=== PATIENT | male | born 1935 | race Caucasian/White ===

== ENCOUNTER 2018-12-15 10:24 | Observation (INO) | payer OTHER ==
[2018-12-15] MEDS ORDERED: NA CHLORIDE 0.9% 500 ML ONE (10:45)
[2018-12-15 11:08] LABS: Absolute Lymphocytes (CBC) 1.8 K/uL (0.7-4.9); Basophils % 0.7 % (0-1.3); Hematocrit 33.2 % (39.6-49.0); Lymphocytes % 31.9 % (15.3-44.8); MPV 8.4 fL (7.6-11.3); RBC Red Blood Cell Count 3.64 M/uL (4.33-5.43)
[2018-12-15 11:18] LABS: BUN Blood Urea Nitrogen 22 mg/dL (7-18); Bicarbonate 28 mmol/L (21-32); CKMB Creatine Kinase MB 1.5 ng/mL (0.3-3.6); Creatine Phosphokinase 63 U/L (39-308); Glucose Level 96 mg/dL (74-106); Magnesium 1.8 mg/dL (1.8-2.4); Potassium 3.2 mmol/L (3.5-5.1); Sodium Level 134 mmol/L (136-145); Troponin (Emerg Dept Use Only) < 0.02 ng/mL (0.0-0.045)
--- NOTE | 2018-12-15 11:49 | RAD REPORT ---
EXAM DESCRIPTION: CT - CTHCSPWOC - 12/15/2018 10:57 am CLINICAL HISTORY: Syncope, loss of consciousness with fall, head and neck injury COMPARISON: None. TECHNIQUE: Axial 5 mm thick images of the head were obtained. Axial 2 mm thick images of the cervic al spine were obtained with sagittal and coronal reconstruction images generated and reviewed. All CT scans are performed using dose optimization technique as appropriate and may include automated exposure control or mA/KV adjustment according to patient size. FINDINGS: No intracranial hemorrhage, mass, edema or acute intracranial finding. No suspicion for ac [place] infarction. No extra-axial fluid collections. Mastoid air cells are clear. There is opacification of left side sphenoid sinus with the sinus thompson thickened and sclerotic. No globe or orbit abnormal ity seen. No skull fracture. Arterial tree calcifications are present. Patient has moderate atrophy w ith ventricular size in proportion. Prominent chronic ischemic changes are present throughout the cer ebral white matter. Cervical body height and alignment are normal. Anterior endplate spurring at C2-3 and C3-4. Significa nt bony foraminal encroachment seen at C3-4. Central canal detail is inherently limited. No fracture or acute bony abnormality. No paraspinal mass or hematoma. IMPRESSION: Patient has moderate atrophy and advanced chronic ischemic change. No acute intracranial finding. Cervical spine degenerative changes are present as detailed. No acute intracranial finding. Chronic sphenoid sinusitis.
--- NOTE | 2018-12-15 11:51 | RAD REPORT ---
EXAM DESCRIPTION: RAD - Chest Single View - 12/15/2018 11:20 am CLINICAL HISTORY: Fall, chest pain, syncope, right-sided rib pain COMPARISON: August 2018 TECHNIQUE: AP portable chest image was obtained 1103 hours . FINDINGS: Lung volumes are low. Interstitial pattern matches comparison. No pneumothorax or pulmonar y contusion seen. Heart and vasculature are normal. No pleural fluid collection identified. AC joint degenerative changes are present. No gross rib abnormality seen. However, rib detail is limited. No a cute aortic findings suspected. IMPRESSION: Shallow inspiration film without acute cardiopulmonary finding. Rib assessment is limited. Ongoing clinical concerns for chest wall injury or rib injury can be addressed with dedicated rib ser ies or CT chest imaging.
--- NOTE | 2018-12-15 12:22 | RAD REPORT ---
EXAM DESCRIPTION: CT - Chest For Pe Angio - 12/15/2018 12:03 pm CLINICAL HISTORY: Syncope, recent fall, rib pain COMPARISON: Chest Single View dated 12/15/2018 TECHNIQUE: Dynamically enhanced 3 mm thick images of the chest were obtained during administration o f approximately 150mL Isovue 370 IV contrast. Coronal and oblique MIP reconstruction images were gene rated and reviewed. Exam utilizes a protocol to evaluate the pulmonary arterial tree. All CT scans are performed using dose optimization technique as appropriate and may include automated exposure control or mA/KV adjustment according to patient size. FINDINGS: No pulmonary emboli are identified. The aorta as imaged shows no acute or suspicious finding. No pericardial thickening or effusion. Patient has advanced fibro emphysematous lung changes. Numerous moderate-size bullous cavities are pr esent in the upper lung cid. Interstitial stranding in the subpleural interstitial opacification i s probably chronic disease. Superimposed interstitial infiltrates cannot be excluded. Mild bronchial wall thickening is evident and viral infiltrate is possible. Calcified granuloma noted. No suspicious mass of the lung parenchyma and no focal consolidation present. No pleural effusion or pleural thick ening. No mediastinal or hilar suspicious masses. No chest wall masses or abnormal axillary lymphadenopathy. The scapula and shoulder joints bilaterally, partially imaged, show no acute finding. CT PE protocol does not fully image the ribcage. The inferior aspect of the ribs are not imaged. The imaged portions of the ribcage show no displaced fracture. No pathologic rib process. There is questionable fracture of the right sixth rib at the costochondral junction. The third- fifth and seventh ribs show subtle buckling of the cortex anteriorly. This is more pronounced than seen on the left and could be an inco mplete or greenstick type fracture. Correlation is needed with any pain symptoms in this portion of t he ribcage. IMPRESSION: No pulmonary emboli. No acute aortic finding. Extensive fibro emphysematous lung changes with the prominent interstitial pattern in each lung base potentially representing viral infiltrate rather than entirely fibrotic in origin. Patient has a questionable nondisplaced right sixth rib fracture at the costochondral junction. The t hird- fifth and seventh ribs show cortical buckling anteriorly suspicious for greenstick type rib fra ctures. Correlation is needed with any pain symptoms in the mid upper anterior right rib cage. No other significant or suspicious findings.
--- NOTE | 2018-12-15 13:00 | ER ---
Nurse's Notes [facility] Name: Kyaw Ellington Jr Age: 83 yrs Sex: Male : 1935 Arrival Date: 12/15/2018 Time: 10:26 Bed 6 Private MD: Diagnosis: Multiple fractures of ribs, right side;Syncope and collapse Presentation: 12/15 10:27 Presenting complaint: EMS states: pt reports LOC then fell on floor. Hit L side of the ca1 head on drawer and R rib area on floor. BP was stable on scene but when we stood him up pt reported nausea and became diaphoretic, NO change in BP. BGL was 89. Sinus rhythm on 12L. Pt is on Aspirin. Transition of care: patient was not received from another setting of care. Onset of symptoms was December 15, 2018. Risk Assessment: Do you want to hurt yourself or someone else? Patient reports no desire to harm self or others. Initial Sepsis Screen: Does the patient meet any 2 criteria? No. Patient's initial sepsis screen is negative. Does the patient have a suspected source of infection? No. Patient's initial sepsis screen is negative. Care prior to arrival: IV initiated. 20 GA, in the right wrist, Glucose check: 89. 10:27 Method Of Arrival: EMS: [place] [id number] 10:27 Acuity: JAME 2 ca1 10:40 Mechanism of Injury: Fall from standing position. Trauma event details: Injury occurred [facility] in the [facility], Injury occurred: at home. Injury occurred: December 15, 2018 Injury occurred at: 10:00. Trauma Activation: Alert Physician: ED Physician; Name: ; Notified At: ; Arrived At: Physician: General Surgeon; Name: ; Notified At: ; Arrived At: Physician: Radiology; Name: ; Notified At: ; Arrived At: Physician: Respiratory; Name: ; Notified At: ; Arrived At: Physician: Lab; Name: ; Notified At: ; Arrived At: Historical: - Allergies: 10:32 No Known Allergies; ca1 - Home Meds: 10:59 levothyroxine oral [Active]; Lovastatin Oral [Active]; aspirin 81 mg Oral chew 1 tab ca1 once daily [Active]; Hydrochlorothiazide Oral [Active]; Potassium Chloride Oral [Active]; - PMHx: 10:32 COLON CA; COPD; Diabetes - NIDDM; Hyperlipidemia; Hypertension; Hypothyroidism; ca1 PROSTATE CA; - PSHx: 10:32 Colon Surgery; Hernia Repair; ca1 - Immunization history:: Adult Immunizations up to date. - Social history:: Smoking status: Patient/guardian denies using tobacco. - Immunization history: Last tetanus immunization: < 5 years ago. - Ebola Screening: : Patient negative for fever greater than or equal to 101.5 degrees Fahrenheit, and additional compatible Ebola Virus Disease symptoms Patient denies exposure to infectious person Patient denies travel to an Ebola-affected area in the 21 days before illness onset No symptoms or risks identified at this time. - Family history:: not pertinent. - Hospitalizations: : No recent hospitalization is reported. Screenin:34 Abuse screen: Denies threats or abuse. Denies injuries from another. Nutritional ca1 screening: No deficits noted. Tuberculosis screening: No symptoms or risk factors identified. Fall Risk Fall in past 12 months (25 points). IV access (20 points). Total Lu Fall Scale indicates Low Risk Score (25-44 pts). Fall prevention measures have been instituted. Side Rails Up X 2 Family Present and informed to notify staff if they need to leave bedside As available Patient and Family Educated on Fall Prevention Program and strategies. Primary Survey: 10:38 NO uncontrolled hemorrhage observed. A: The patient is alert. Airway: patent. ca1 Breathing/Chest: Respiratory pattern: regular, Respiratory effort: spontaneous, unlabored, Breath sounds: clear, bilaterally. Chest inspection: symmetrical rise and fall of the chest. Circulation: Cardiac rhythm: sinus bradycardia Heart tones present. Pulses: palpable bilateral radial, brachial, femoral, popliteal, posterior tibial and and dorsalis pedis arteries.. Skin color: pink, Skin temperature: warm, dry. Disability Alert. Exposure/Environment: All clothing and personal items were removed. Forensic evidence collection is not deemed to be indicated at this time. Items placed in patient belonging bag. There is no evidence of uncontrolled external bleeding. No obvious injuries are noted at this time. A warming method has been applied: A warm blanket has been provided to the patient. 11:16 Reassessment Airway Airway Patent Breathing/Chest Respiratory pattern Regular ca1 Respiratory effort Spontaneous Unlabored Breath sounds Clear Chest inspection Symmetrical Circulation Heart rhythm Sinus antonette Heart tones Present Pulses Palpable Color [place] Temperature Warm Dry Disability Alert. Assessment: 10:30 Reassessment: Dr. Jack at bedside. ca1 10:34 General: Appears in no apparent distress. comfortable, Behavior is calm, cooperative, ca1 appropriate for age. Pain: Complains of pain in R ribcage area Pain currently is 3 out of 10 on a pain scale. at worst was 8 out of 10 on a pain scale. Aggravated by repositioning. Neuro: Level of Consciousness is awake, alert, obeys commands, Oriented to person, place, time, situation, Appropriate for age. Cardiovascular: Heart tones S1 S2 present Capillary refill < 3 seconds Patient's skin is warm and dry. Pulses are all present. Rhythm is sinus bradycardia. Respiratory: Airway is patent Respiratory effort is even, unlabored, Respiratory pattern is regular, symmetrical, Breath sounds are clear bilaterally. GI: Abdomen is flat, non-distended, Bowel sounds present X 4 quads. Abd is soft and non tender X 4 quads. : No deficits noted. No signs and/or symptoms were reported regarding the genitourinary system. EENT: No deficits noted. No signs and/or symptoms were reported regarding the EENT system. Derm: Skin is healthy with good turgor, Skin is pink, warm \T\ dry. Derm: Musculoskeletal: Circulation, motion, and sensation intact. Capillary refill < 3 seconds, Range of motion: intact in all extremities. Injury Description: Laceration sustained to left temporal area is clean, superficial, 0.5 to 2.5 cm long, was sustained less than 30 minutes ago. no active bleeding noted at this time. 11:17 Reassessment: Patient appears in no apparent distress at this time. Patient and/or ca1 family updated on plan of care and expected duration. Pain level reassessed. Patient is alert, oriented x 3, equal unlabored respirations, skin warm/dry/pink. 12:11 Reassessment: Patient appears in no apparent distress at this time. Patient and/or ca1 family updated on plan of care and expected duration. Pain level reassessed. Patient is alert, oriented x 3, equal unlabored respirations, skin warm/dry/pink. 13:02 Reassessment: Patient appears in no apparent distress at this time. Patient and/or ca1 family updated on plan of care and expected duration. Pain level reassessed. Patient is alert, oriented x 3, equal unlabored respirations, skin warm/dry/pink. Vital Signs: 10:32 BP 133 / 71; Pulse 55; Resp 14 S; Temp 97.5(O); Pulse Ox 97% on R/A; Weight 86.18 kg ca1 (R); Height 5 ft. 11 in. (180.34 cm) (R); Pain 3/10; 11:17 BP 122 / 68; Pulse 68; Resp 17 S; Pulse Ox 100% on R/A; ca1 12:11 BP 127 / 69; Pulse 76; Resp 13 S; Pulse Ox 99% on R/A; ca1 13:02 BP 141 / 80; Pulse 82; Resp 16 S; Pulse Ox 99% on R/A; ca1 10:32 Body Mass Index 26.50 (86.18 kg, 180.34 cm) ca1 [place] Coma Score: 10:38 Eye Response: spontaneous(4). Verbal Response: oriented(5). Motor Response: obeys ca1 commands(6). Total: 15. Trauma Score (Adult): 10:38 Eye Response: spontaneous(1); Verbal Response: oriented(1); Motor Response: obeys ca1 commands(2); Systolic BP: > 89 mm Hg(4); Respiratory Rate: 10 to 29 per min(4); [place]inda Score: 15; Trauma Score: 12 ED Course: 10:26 Patient arrived in ED. ca1 10:27 Patient has correct armband on for positive identification. Bed in low position. Call mh5 light in reach. Side rails up X2. Warm blanket given. compliance monitor on. Pulse ox on. NIBP on. 10:28 EKG done, by medical records tech. reviewed by López Jack MD. at1 10:30 López Jack MD is Attending Physician. rn 10:30 Triage completed. ca1 10:32 Arm band placed on right wrist. EKG completed in triage. Results shown to MD. ca1 10:34 No provider procedures requiring assistance completed. Maintain EMS IV. Dressing ca1 intact. Good blood return noted. Site clean \T\ dry. Gauge \T\ site: 20G. 10:38 Patient maintains SpO2 saturation greater than 95% on room air. ca1 10:42 Venus Ibarra, RN is Primary Nurse. ca1 10:42 Thermoregulation: warm blanket given to patient. ca1 10:58 CT Head C Spine In Process Unspecified. EDMS 11:05 CT completed. Patient tolerated procedure well. Patient moved to radiology via jj2 stretcher. 11:16 Wound care: to laceration located on left temporal area was cleaned with Betadine, ca1 dressed with Steri-strips, Patient tolerated well. 11:20 XRAY Chest (1 view) In Process Unspecified. EDMS 12:03 CT Chest For PE Angio In Process Unspecified. EDMS 12:59 Mali Elias MD is Hospitalizing Provider. rn 13:43 IV discontinued, intact, bleeding controlled, No redness/swelling at site. Pressure ca1 dressing applied. Administered Medications: 10:50 Drug: NS 0.9% 500 ml Route: IV; Rate: bolus; Site: right wrist; ca1 11:56 Follow up: Response: No adverse reaction; IV Status: Completed infusion; IV Intake: ca1 500ml 13:12 Drug: HYDROcodone-acetaminophen 5 mg-325 mg 1 tabs {Note: RASS - 0.} Route: PO; ca1 14:00 Follow up: Response: No adverse reaction; Pain is decreased ca1 Intake: 11:56 IV: 500ml; Total: 500ml. ca1 Output: 13:44 Urine: 320ml (Voided); Total: 320ml. ca1 Outcome: 13:00 Decision to Hospitalize by Provider. rn 13:43 Admitted to Tele accompanied by fatoumata, family with patient, via stretcher, room 421, ca1 with chart, Report called to Pamela Mane RN 13:43 Condition: stable 13:43 Instructed on the need for admit. 13:45 Patient's length of stay in the Emergency Department was greater than 2 hours. ca1 Additional tests done. Patient's length of stay extended due to 13:51 Patient left the ED. ca1 Signatures: Dispatcher [employer] EDMS Dale Suárez j López Jack MD MD rn Gonzales, Amanda, test evaluator EKG Tat1 Dominique Clayton mh5 Venus Ibarra RN RN ca1 Corrections: (The following items were deleted from the chart) 10:30 10:27 Presenting complaint: EMS states: pt reports LOC then fell on floor. Hit L side ca1 of the head on drawer and R rib area on floor. BP was stable on scene but when we stood him up pt reported nausea and became diaphoretic, NO change in BP. BGL was 89. Sinus rhythm on 12L. ca1 10:34 10:27 Presenting complaint: EMS states: pt reports LOC then fell on floor. Hit L side ca1 of the head on drawer and R rib area on floor. BP was stable on scene but when we stood him up pt reported nausea and became diaphoretic, NO change in BP. BGL was 89. Sinus rhythm on 12L. ca1 10:34 10:34 Reassessment: Dr. Jack at bedside ca1 ca1 12:49 12:11 BP 127 / 69; Pulse 76bpm; Resp 13bpm; Pulse Ox 99% RA; ca1 ca1
--- NOTE | 2018-12-15 13:01 | EDPHYS ---
Physician Documentation [facility] Name: Kyaw Ellington Jr Age: 83 yrs Sex: Male : 1935 Arrival Date: 12/15/2018 Time: 10:26 Bed 6 Private MD: ED Physician López Jack HPI: 12/15 10:42 This 83 yrs old Male presents to ER via EMS with complaints of Fall Injury. rn 10:42 Details of fall: The patient fell from an upright position, while standing. Onset: The rn symptoms/episode began/occurred just prior to arrival. Associated injuries: The patient sustained injury to the head. Severity of symptoms: At their worst the symptoms were mild, in the emergency department the symptoms have improved. The patient has not experienced similar symptoms in the past. Reports had just gotten home from coffee with friends, was changing, felt lightheaded and passed out, Woke up on ground, not sure what he hit, no blood thinners. Reports feels ok right now except for rib pain on right side of chest. Denies preceding chest pain/sob/abd pain/nausea/vomiting/diaphoresis. No focal neurological complaint. Does state was on a recent flight to [place] for affair. . Historical: - Allergies: 10:32 No Known Allergies; ca1 - Home Meds: 10:59 levothyroxine oral [Active]; Lovastatin Oral [Active]; aspirin 81 mg Oral chew 1 tab ca1 once daily [Active]; Hydrochlorothiazide Oral [Active]; Potassium Chloride Oral [Active]; - PMHx: 10:32 COLON CA; COPD; Diabetes - NIDDM; Hyperlipidemia; Hypertension; Hypothyroidism; ca1 PROSTATE CA; - PSHx: 10:32 Colon Surgery; Hernia Repair; ca1 - Immunization history:: Adult Immunizations up to date. - Social history:: Smoking status: Patient/guardian denies using tobacco. - Immunization history: Last tetanus immunization: < 5 years ago. - Ebola Screening: : Patient negative for fever greater than or equal to 101.5 degrees Fahrenheit, and additional compatible Ebola Virus Disease symptoms Patient denies exposure to infectious person Patient denies travel to an Ebola-affected area in the 21 days before illness onset No symptoms or risks identified at this time. - Family history:: not pertinent. - Hospitalizations: : No recent hospitalization is reported. ROS: 10:42 Constitutional: Negative for fever, chills, and weight loss, Eyes: Negative for injury, rn pain, redness, and discharge, Neck: + mild neck pain Cardiovascular: + right rib pain, negative for palpitations Respiratory: Negative for shortness of breath, cough, wheezing, and pleuritic chest pain, Abdomen/GI: Negative for abdominal pain, nausea, vomiting, diarrhea, and constipation, Back: Negative for injury and pain, MS/Extremity: Negative for injury and deformity, Skin: + skin tear left pentecostal Neuro: Negative for headache, weakness, numbness, tingling, and seizure. Exam: 10:42 Constitutional: This is a well developed, well nourished patient who is awake, alert, rn and in no acute distress. Head/Face: Normocephalic, + 2cm triangular skin tear left pentecostal, no active bleeding Eyes: Pupils equal round and reactive to light, extra-ocular motions intact. Lids and lashes normal. Conjunctiva and sclera are non-icteric and not injected. Cornea within normal limits. Periorbital areas with no swelling, redness, or edema. ENT: No oral trauma. Neck: Trachea midline, no masses, + mild pericervical tenderness without bony tenderness Chest/axilla: Normal chest wall appearance and motion. + mild tenderness right lateral chest wall, no crepitus, no bruising. Cardiovascular: Bradycardic, regular, no murmur Respiratory: No increased work of breathing, no retractions or nasal flaring. Abdomen/GI: Soft, non-tender MS/ Extremity: Pulses equal, no cyanosis. Neurovascular intact. Full, normal range of motion. Equal circumference. Neuro: Awake and alert, GCS 15, oriented to person, place, time, and situation. Cranial nerves II-XII grossly intact. Motor strength 5/5 in all extremities. Sensory grossly intact. Cerebellar exam normal. Vital Signs: 10:32 BP 133 / 71; Pulse 55; Resp 14 S; Temp 97.5(O); Pulse Ox 97% on R/A; Weight 86.18 kg ca1 (R); Height 5 ft. 11 in. (180.34 cm) (R); Pain 3/10; 11:17 BP 122 / 68; Pulse 68; Resp 17 S; Pulse Ox 100% on R/A; ca1 12:11 BP 127 / 69; Pulse 76; Resp 13 S; Pulse Ox 99% on R/A; ca1 13:02 BP 141 / 80; Pulse 82; Resp 16 S; Pulse Ox 99% on R/A; ca1 10:32 Body Mass Index 26.50 (86.18 kg, 180.34 cm) ca1 Olinda Coma Score: 10:38 Eye Response: spontaneous(4). Verbal Response: oriented(5). Motor Response: obeys ca1 commands(6). Total: 15. Trauma Score (Adult): 10:38 Eye Response: spontaneous(1); Verbal Response: oriented(1); Motor Response: obeys ca1 commands(2); Systolic BP: > 89 mm Hg(4); Respiratory Rate: 10 to 29 per min(4); Seco Score: 15; Trauma Score: 12 MDM: 10:30 Patient medically screened. rn 12:58 Differential diagnosis: closed head injury, contusion, fracture, sprain, strain. Data rn reviewed: vital signs, nurses notes, lab test result(s), EKG, radiologic studies, CT scan, plain films, and as a result, I will admit patient. Counseling: I had a detailed discussion with the patient and/or guardian regarding: the historical points, exam findings, and any diagnostic results supporting the discharge/admit diagnosis, lab results, radiology results, the need for further work-up and treatment in the hospital. Response to treatment: the patient's symptoms have mildly improved after treatment, and as a result, I will admit patient. Admission orders: after a detailed discussion of the patient's condition and case, the admit orders are written by me. ED course: Pt with unclear etiology of syncope, feeling better, normal vitals. CT chest shows 5 non-displaced/greenstick rib fractures. Will observe overnight given age, multiple co-morbidities, and 5 rib fractures. Admitted to Dr. Elias at 1300.. 12/15 10:41 Order name: Basic Metabolic Panel; Complete Time: : rn 12/15 10:41 Order name: CBC with Diff; Complete Time: : rn 12/15 10:41 Order name: Ckmb; Complete Time: : rn 12/15 10:41 Order name: CPK; Complete Time: rn 12/15 10:41 Order name: Magnesium; Complete Time: : rn 12/15 10:41 Order name: Troponin (emerg Dept Use Only); Complete Time: 11:22 rn 12/15 10:41 Order name: CT Head C Spine; Complete Time: 12:03 rn 12/15 10:41 Order name: EKG; Complete Time: 10:42 rn 12/15 10:41 Order name: XRAY Chest (1 view); Complete Time: 12:03 rn 12/15 10:53 Order name: NOVA ca1 12/15 11:23 Order name: CT Chest For PE Angio; Complete Time: 12:29 rn 12/15 12:44 Order name: Urine Dipstick--Ancillary (enter results); Complete Time: 13:06 bd 12/15 10:41 Order name: Cardiac monitoring; Complete Time: 10:42 rn 12/15 10:41 Order name: EKG - Nurse/Tech; Complete Time: 10:42 rn 12/15 10:41 Order name: IV Saline Lock; Complete Time: 10:42 rn 12/15 10:41 Order name: Labs collected and sent; Complete Time: 10:42 rn 12/15 10:41 Order name: NPO; Complete Time: 10:42 rn 12/15 10:41 Order name: O2 Per Protocol; Complete Time: 10:43 rn 12/15 10:41 Order name: O2 Sat Monitoring; Complete Time: 10:43 rn 12/15 10:41 Order name: Urine Dipstick-Ancillary (obtain specimen); Complete Time: 12:43 rn Administered Medications: 10:50 Drug: NS 0.9% 500 ml Route: IV; Rate: bolus; Site: right wrist; ca1 11:56 Follow up: Response: No adverse reaction; IV Status: Completed infusion; IV Intake: ca1 500ml 13:12 Drug: HYDROcodone-acetaminophen 5 mg-325 mg 1 tabs {Note: RASS - 0.} Route: PO; ca1 14:00 Follow up: Response: No adverse reaction; Pain is decreased ca1 Disposition: 12/15/18 13:00 Hospitalization ordered by Mali Elias for Observation. Preliminary diagnosis are Multiple fractures of ribs, right side, Syncope and collapse. - Bed requested for Telemetry/MedSurg (observation). - Status is Observation. ca1 - Condition is Stable. - Problem is new. - Symptoms have improved. UTI on Admission? No Signatures: Dispatcher [employer] EDMS Ofelia Shabazz bd López Jack MD MD rn AcobVenus RN RN ca1 Corrections: (The following items were deleted from the chart) 13: 13:00 Hospitalization Ordered by Mali Elias MD for Observation. Preliminary bd diagnosis is Multiple fractures of ribs, right side; Syncope and collapse. Bed requested for Telemetry/MedSurg (observation). Status is Observation. Condition is Stable. Problem is new. Symptoms have improved. UTI on Admission? No. rn 13:51 13:31 12/15/2018 13:00 Hospitalization Ordered by Mali Elias MD for Observation. ca1 Preliminary diagnosis is Multiple fractures of ribs, right side; Syncope and collapse. Bed requested for Telemetry/MedSurg (observation). Status is Observation. Condition is Stable. Problem is new. Symptoms have improved. UTI on Admission? No. bd
[2018-12-15 13:03] LABS: Urine Blood TRACE (NEG); Urine Glucose NEGATIVE (NEG); Urine Protein NEGATIVE (NEG); Urine Specific Gravity 1.015 (1.005-1.030)
[2018-12-15] MEDS ORDERED: HYDROCODONE/APAP 5/325 MG TAB ONE (13:06)
--- NOTE | 2018-12-15 14:43 | P.HP ---
Certification for Inpatient Patient admitted to: Observation With expected LOS: <2 Midnights Patient will require the following post-hospital care: None Practitioner: I am a practitioner with admitting privileges, knowledge of patient current condition, hospital course, and medical plan of care. Services: Services provided to patient in accordance with Admission requirements found in Title 42 Section 412.3 of the Code of Federal Regulations Patient History Date of Service: 12/15/18 Primary Care Provider: In [place] Reason for admission: Syncopal Episode History of Present Illness: This is a 83-year-old male with significant past medical history of hypertension and diabetes who presented to the ED after having a syncopal episode at the house. Patient stated that he woke up this morning and had his usual coffee after which he went to his room and to change his pants after he was able to change his pants and was trying to get into bed and had a syncopal episode. He stated that he felt like he was getting dizzy and fell to the ground after that. His heard him fall and thus came to the room. Patient woke up did not have any amnesia and was recollecting the entire incident to his afterwards. Patient's at bedside states that patient was down for at least a min or 2 however she is not sure. Patient stated that he has never had this episode happened to him before. No other complaints to offer at this time. Denies having any headache, vision changes in the LEs or any other associated symptoms. Patient stated that he recently flew back from [place] and has been on a fast pace life recently than usual self. Allergies No Known Allergies Allergy (Verified 09/23/15 12:37) Home medications list reviewed: Yes Home Medications: Aspirin [Raji Chewable Aspirin] 81 mg PO DAILY 09/23/15 Metformin ER [Glucophage ER*] 500 mg PO DAILY 09/23/15 - Past Medical/Surgical History Has patient received pneumonia vaccine in the past: Yes Diabetic: Yes -: Hypertension -: Diabetes -: Prostate cancer -: Hernia repair - Family History Family History: Reviewed- Non-Contributory - Social History Smoking Status: Former smoker Counseled patient to stop smoking for: more than 10 minutes Smoking therapy provided: Yes Patient receptive to therapy: Yes Alcohol use: No CD- Drugs: No Caffeine use: No Place of Residence: Home Review of Systems 10-point ROS is otherwise unremarkable Physical Examination - Vital Signs Temperature: 97.5 F Blood Pressure: 141/80 Pulse: 82 Respirations: 16 - Physical Exam General: Alert, In no apparent distress HEENT: Atraumatic, PERRLA, Mucous membr. moist/pink, EOMI, Sclerae nonicteric Neck: Supple, 2+ carotid pulse no bruit, No LAD, Without JVD or thyroid abnormality Respiratory: Clear to auscultation bilaterally, Normal air movement Cardiovascular: Regular rate/rhythm, Normal S1 S2 Gastrointestinal: Normal bowel sounds, No tenderness Musculoskeletal: No tenderness Integumentary: No rashes Neurological: Normal gait, Normal speech, Normal strength at 5/5 x4 extr, Normal tone, Normal affect Lymphatics: No axilla or inguinal lymphadenopathy - Studies Laboratory Data (last 24 hrs) 12/15/18 10:45: WBC 5.7, Hgb 11.3 L, Hct 33.2 L, Plt Count 187 12/15/18 10:45: Sodium 134 L, Potassium 3.2 L, BUN 22 H, Creatinine 1.21, Glucose 96, Magnesium 1.8 Assessment and Plan - Problems (Diagnosis) (1) Syncope Current Visit: Yes Status: Acute Plan: Syncopal episode most likely secondary to vasovagal symptom -will get echocardiogram and carotid Doppler at this time to rule out any acute abnormality -PTOT has been consulted -fall precautions given Qualifiers: Syncope type: vasovagal syncope Qualified Code(s): R55 - Syncope and collapse (2) Rib fracture Current Visit: Yes Status: Acute Plan: Acute rib fracture on most likely secondary to fall -incentive spirometer and pain management at this time -will monitor patient closely while here in the hospital Qualifiers: Encounter type: initial encounter Rib fracture type: multiple ribs Fracture type: closed Laterality: right Qualified Code(s): S22.41XA - Multiple fractures of ribs, right side, initial encounter for closed fracture (3) Hypertension Current Visit: Yes Status: Chronic Plan: Will restart patient on home medication at this time Qualifiers: Hypertension type: essential hypertension Qualified Code(s): I10 - Essential (primary) hypertension (4) Diabetes Current Visit: Yes Status: Chronic Plan: Will start patient on insulin sliding scale Qualifiers: Diabetes mellitus type: type 2 Diabetes mellitus mcfp insulin use: without pediatric oncologist use Diabetes mellitus complication status: without complication Qualified Code(s): E11.9 - Type 2 diabetes mellitus without complications Discharge Plan: Home Plan to discharge in: 48 Hours - Advance Directives Does patient have a Living Will: No Does patient have a Durable POA for Healthcare: No - Code Status/Comfort Care Code Status Assessed: Yes Critical Care: No
[2018-12-15] MEDS ORDERED: D50W 25 GM/50 ML SYRINGE/VIAL IV PRN (14:44)
[2018-12-15] MEDS ORDERED: GLUCAGON 1 MG/VIAL IM PRN (14:44)
[2018-12-15 14:49] VITALS: BMI 26.4
--- NOTE | 2018-12-15 15:14 | EKG ---
Test Date: 2018-12-15 Test Time: 10:25:27 Financial Agent: HERLINDA MEASUREMENT RESULTS: Intervals: Rate: 54 LA: 150 QRSD: 82 QT: 462 QTc: 438 [place]: P: 36 LA: 150 QRS: 20 T: 28 INTERPRETIVE STATEMENTS: Sinus bradycardia Otherwise normal ECG Compared to ECG 01/26/2017 08:59:40 Sinus rhythm no longer present ST (T wave) deviation no longer present Electronically Signed On 12-15-18 15:13:49 CDT by Beau Cortes
[2018-12-15] MEDS: INSULIN -REGULAR HUMAN 50 UNIT/0.5 ML ML SQ SCH ×2 (16:30→21:00)
[2018-12-15] MEDS ORDERED: POTASSIUM 25 MEQ EFFERV TAB PO ONE (18:58)
--- NOTE | 2018-12-15 20:32 | RAD REPORT ---
EXAM DESCRIPTION: - CP - 12/15/2018 7:42 pm CLINICAL HISTORY: Syncope COMPARISON: None. TECHNIQUE: Real-time sonographic evaluation of both carotid systems was performed. Gonzalez scale and Do ppler interrogation were performed with waveform tracing bilaterally. FINDINGS: Normal high resistance waveforms are noted in both external carotid arteries. The common c arotid arteries and internal carotid arteries show normal low resistance waveforms. Calcified and noncalcified plaquing changes are seen in each carotid bulb and into each internal wilson tid artery. Visually no significant luminal narrowing seen. No dissection identified. Peak systolic a nd end diastolic velocity values and the ICA/CCA ratios are in the non-hemodynamically significant ra nge. Antegrade flow seen in both vertebral arteries. Velocity values and ratios were recorded and are retained in the patient's imaging records. IMPRESSION: Bilateral calcified and noncalcified plaquing changes are present. No evidence of a hemodynamically significant stenosis.
[2018-12-15] MEDS ORDERED: MORPHINE 4 MG/ML SYR IV PRN (22:00)
[2018-12-15] MEDS ORDERED: MORPHINE 4 MG/ML SYR ONE (23:05)
[2018-12-16 03:05] LABS: Urine Appearance CLEAR; Urine Bilirubin NEGATIVE (NEG); Urine Blood NEGATIVE (NEG); Urine Color YELLOW; Urine Glucose NEGATIVE (NEG); Urine Protein NEGATIVE (NEG); Urine Specific Gravity 1.015 (1.005-1.030); Urine Urobilinogen 0.2 mg/dL (0.2-1.0); Urine pH 7.5 (5.0-7.0)
[2018-12-16 03:08] LABS: Urine Microscopic Reflex NO UMIC
[2018-12-16 03:21] VITALS: O2SAT 98
[2018-12-16 05:54] LABS: Absolute Lymphocytes (CBC) 1.9 K/uL (0.7-4.9); Basophils % 0.3 % (0-1.3); Hematocrit 32.9 % (39.6-49.0); Lymphocytes % 29.5 % (15.3-44.8); RBC Red Blood Cell Count 3.65 M/uL (4.33-5.43)
[2018-12-16 06:09] LABS: Albumin 3.3 g/dL (3.4-5.0); Bilirubin Total 0.4 mg/dL (0.2-1.0); Potassium 3.6 mmol/L (3.5-5.1); Protein, Total 6.9 g/dL (6.4-8.2)
[2018-12-16] MEDS: INSULIN -REGULAR HUMAN 50 UNIT/0.5 ML ML SQ SCH (07:30)
[2018-12-16] MEDS ORDERED: ONDANSETRON 4 MG/2 ML VIAL IV ONE (08:07)
[2018-12-16] MEDS ORDERED: POTASSIUM CL SA 10 MEQ TAB PO ONE (08:22)
[2018-12-16] MEDS ORDERED: POTASSIUM 25 MEQ EFFERV TAB PO ONE (09:00)
[2018-12-16] MEDS ORDERED: ENOXAPARIN 40 MG/0.4 ML SQ SCH (09:00)
--- NOTE | 2018-12-16 11:53 | P.SSS ---
Patient History Date of Service: 12/16/18 Primary Care Provider: In [place] Reason for admission: Syncopal Episode History of Present Illness: This is a 83-year-old male with significant past medical history of hypertension and diabetes who presented to the ED after having a syncopal episode at the house. Patient stated that he woke up this morning and had his usual coffee after which he went to his room and to change his pants after he was able to change his pants and was trying to get into bed and had a syncopal episode. He stated that he felt like he was getting dizzy and fell to the ground after that. His heard him fall and thus came to the room. Patient woke up did not have any amnesia and was recollecting the entire incident to his afterwards. Patient's at bedside states that patient was down for at least a min or 2 however she is not sure. Patient stated that he has never had this episode happened to him before. No other complaints to offer at this time. Denies having any headache, vision changes in the LEs or any other associated symptoms. Patient stated that he recently flew back from [place] and has been on a fast pace life recently than usual self. Allergies No Known Allergies Allergy (Verified 09/23/15 12:37) Home Medications: Aspirin [Raji Chewable Aspirin] 81 mg PO DAILY 09/23/15 Metformin ER [Glucophage ER*] 500 mg PO DAILY 09/23/15 Levothyroxine [Synthroid*] 1 tab PO DAILY 12/15/18 Lovastatin 12/15/18 Potassium Chloride 12/15/18 hydroCHLOROthiazide [Hydrochlorothiazide*] 12/15/18 - Past Medical/Surgical History Has patient received pneumonia vaccine in the past: Yes Diabetic: Yes -: Hypertension -: Diabetes -: Prostate cancer -: hypothyroidism -: copd -: hyperlipidemia -: prostate cx -: Hernia repair -: colon sx - Family History Family History: Reviewed- Non-Contributory - Social History Smoking Status: Former smoker Alcohol use: No CD- Drugs: No Caffeine use: No Place of Residence: Home Review of Systems 10-point ROS is otherwise unremarkable Physical Examination - Vital Signs Temperature: 97.3 F Blood Pressure: 144/69 Pulse: 72 Respirations: 18 Pulse Ox (%): 97 - Physical Exam General: Alert, In no apparent distress HEENT: Atraumatic, PERRLA, Mucous membr. moist/pink, EOMI, Sclerae nonicteric Neck: Supple, 2+ carotid pulse no bruit, No LAD, Without JVD or thyroid abnormality Respiratory: Clear to auscultation bilaterally, Normal air movement Cardiovascular: Regular rate/rhythm, Normal S1 S2 Gastrointestinal: Normal bowel sounds, No tenderness Musculoskeletal: No tenderness Integumentary: No rashes Neurological: Normal gait, Normal speech, Normal strength at 5/5 x4 extr, Normal tone, Normal affect Lymphatics: No axilla or inguinal lymphadenopathy - Diagnosis (Problem(s)) (1) Syncope Current Visit: Yes Status: Acute Plan: Syncopal episode most likely secondary to vasovagal symptom -echocardiogram and carotid Doppler negative for any acute abnormality -patient worked with physical therapy did well overall -this syncopal episode resolves while here in the hospital. -discharge patient home today Qualifiers: Syncope type: vasovagal syncope Qualified Code(s): R55 - Syncope and collapse (2) Rib fracture Current Visit: Yes Status: Acute Plan: Acute rib fracture on most likely secondary to fall -incentive spirometer and pain management at this time -will prescribed over the counter Tylenol for pain management at home Qualifiers: Encounter type: initial encounter Rib fracture type: multiple ribs Fracture type: closed Laterality: right Qualified Code(s): S22.41XA - Multiple fractures of ribs, right side, initial encounter for closed fracture (3) Hypertension Current Visit: Yes Status: Chronic Qualifiers: Hypertension type: essential hypertension Qualified Code(s): I10 - Essential (primary) hypertension (4) Diabetes Current Visit: Yes Status: Chronic Qualifiers: Diabetes mellitus type: type 2 Diabetes mellitus terminal carman insulin use: without terminal carman use Diabetes mellitus complication status: without complication Qualified Code(s): E11.9 - Type 2 diabetes mellitus without complications - Disposition Disposition: ROUTINE DISCHARGE Condition: GOOD Diet: Regular Activity: Ad betina
[2018-12-16 12:02] VITALS: BP 120/62; TEMP 97
--- NOTE | 2018-12-16 12:56 | ECHO ---
HEIGHT: 5 ft 11 in WEIGHT: 189 lb 3.2 oz DATE OF STUDY: 12/16/[address]: Mali Elias MD 2-DIMENSIONAL: YES M.MODE: YES DOPPLER: YES COLOR FLOW: YES TDS: NO PORTABLE: NO DEFINITY: NO BUBBLE STUDY: NO DIAGNOSIS: SYNCOPAL EPISODE CARDIAC HISTORY: CATHERIZATION: SURGERY: PROSTHETIC VALVE: PACEMAKER: MEASUREMENTS (cm) DIASTOLIC (NORMALS) SYSTOLIC (NORMALS) IVSd 1.0 (0.6-1.2) LA Diam 3.7 (1.9-4.0) LVEF 73% LVIDd 3.7 (3.5-5.7) LVIDs 2.2 (2.0-3.5) %FS 41% LVPWd 1.1 (0.6-1.2) Ao Diam 3.2 (2.0-3.7) 2 DIMENSIONAL ASSESSMENT: RIGHT ATRIUM: NORMAL LEFT ATRIUM: NORMAL RIGHT VENTRICLE: NORMAL LEFT VENTRICLE: NORMAL TRICUSPID VALVE: NORMAL MITRAL VALVE: MITRAL ANNULAR CALCIFICATION PULMONIC VALVE: NORMAL AORTIC VALVE: NORMAL PERICARDIAL EFFUSION: NONE AORTIC ROOT: NORMAL LEFT VENTRICULAR WALL MOTION: NORMAL DOPPLER/COLOR FLOW: NORMAL COMMENTS: MITRAL ANNULAR CALCIFICATION. NO AORTIC STENOSIS. NORMAL LEFT VENTRICULAR SIZE AND FUNCTION. NO WALL MOTION ABNORMALITY. NO EFFUSION. TECHNOLOGIST: Aby BROWN
== END 2018-12-16 13:14 | disposition home or self-care (01) ==
LOC: ER 10:24 → ERHOLD 13:09 → 4TH 13:45
PROVIDERS: ADMIT Family Medicine; ATTEND Family Medicine
DX: R55 Syncope and collapse (principal); S22.41XA Multiple fractures of ribs, right side, initial encounter for closed fracture; J44.9 Chronic obstructive pulmonary disease, unspecified; I10 Essential (primary) hypertension; E11.8 Type 2 diabetes mellitus with unspecified complications; E03.9 Hypothyroidism, unspecified; E78.5 Hyperlipidemia, unspecified; Z87.891 Personal history of nicotine dependence; Z85.46 Personal history of malignant neoplasm of prostate
CPT/HCPCS: 93005; 93306; 85025 ×2; 80048; 36415; 83735; 82550; 84132; 82962 ×3; 82947 ×2; 81003 ×2; 84484; 82553; 80053; 70450; 72125; 71275; 71045; 93880; 97112; 97116; 97161; 96360; 99285; Q9967; J1650; J7040; J2405; G0378 ×3

== ENCOUNTER 2020-05-16 09:54 | Emergency (ER) | payer OTHER ==
[2020-05-16] MEDS ORDERED: dexAMETHasone 10 MG/ML VIAL ONE (10:23)
[2020-05-16] MEDS ORDERED: FENTANYL CITR 100 MCG/2 ML ONE (10:23)
[2020-05-16] MEDS ORDERED: NA CHLORIDE 0.9% 100 ML ONE (10:24)
[2020-05-16] MEDS ORDERED: METHOCARBAMOL 1,000 MG/10 ML VIAL IV ONE (10:24)
[2020-05-16] MEDS ORDERED: KETOROLAC 30 MG/ML INJ ONE (10:24)
[2020-05-16 10:39] LABS: Absolute Lymphocytes (CBC) 1.6 K/uL (0.7-4.9); Basophils % 0.2 % (0-1.3); Hematocrit 33.6 % (39.6-49.0); Lymphocytes % 18.2 % (15.3-44.8); RBC Red Blood Cell Count 3.74 M/uL (4.33-5.43)
[2020-05-16 10:57] LABS: Potassium 3.4 mmol/L (3.5-5.1)
--- NOTE | 2020-05-16 11:56 | ER ---
Nurse's Notes [facility] Name: Kyaw Ellington Jr Age: 84 yrs Sex: Male : 1935 Arrival Date: 05/16/2020 Time: 09:59 Bed 3 Private MD: Diagnosis: Low back pain Presentation: 05/16 10:00 Chief complaint: EMS states: Low back pain after lifting yesterday. Coronavirus hb screen: At this time, the client does not indicate any symptoms associated with coronavirus-19. Ebola Screen: No symptoms or risks identified at this time. Initial Sepsis Screen: Does the patient meet any 2 criteria? No. Patient's initial sepsis screen is negative. Does the patient have a suspected source of infection? No. Patient's initial sepsis screen is negative. Risk Assessment: Do you want to hurt yourself or someone else? Patient reports no desire to harm self or others. Onset of symptoms was May 15, 2020. 10:00 Method Of Arrival: EMS: [facility] 10:00 Acuity: JAME 3 hb Historical: - Allergies: 10:02 No Known Allergies; hb - Home Meds: 10:02 aspirin 81 mg Oral chew 1 tab once daily [Active]; cetirizine 10 mg Oral tab 1 tab once hb daily [Active]; dorzolamide-timolol (PF) ophthalmic 2 times per day [Active]; etodolac 200 mg Oral cap daily [Active]; hydrochlorothiazide 25 mg Oral tab 1 tab once daily [Active]; levothyroxine 75 mcg tab 1 tab once daily [Active]; lovastatin 40 mg Oral tab 2 times per day [Active]; metformin 500 mg Oral tr24 once daily [Active]; omeprazole 20 mg Oral cpDR 1 cap once daily [Active]; Striverdi Respimat 2.5 mcg/actuation inhalation mist 2 puffs once daily [Active]; timolol maleate 0.5 % Opht solg 1 drop once daily [Active]; Spiriva Respimat inhalation [Active]; - PMHx: 10:02 COLON CA; COPD; Diabetes - NIDDM; Hyperlipidemia; Hypertension; Hypothyroidism; hb PROSTATE CA; - PSHx: 10:02 Colon Surgery; Hernia repair; hb - Immunization history:: Adult Immunizations up to date. - Social history:: Smoking status: Patient denies any tobacco usage or history of. Screenin:44 Abuse screen: Denies threats or abuse. Denies injuries from another. Nutritional hb screening: No deficits noted. Tuberculosis screening: No symptoms or risk factors identified. Fall Risk None identified. Assessment: 10:15 General: Appears in no apparent distress. Behavior is calm, cooperative. Pain: Pain hb currently is 8 out of 10 on a pain scale. at worst was 10 out of 10 on a pain scale. Neuro: Level of Consciousness is awake, alert, obeys commands, Oriented to person, place, time, situation. 10:15 Cardiovascular: Patient's skin is warm and dry. Rhythm is regular. Respiratory: hb Respiratory effort is even, unlabored, Respiratory pattern is regular, symmetrical. GI: No signs and/or symptoms were reported involving the gastrointestinal system. : No signs and/or symptoms were reported regarding the genitourinary system. EENT: No signs and/or symptoms were reported regarding the EENT system. Derm: Skin is pink, warm \T\ dry. Musculoskeletal: Reports low back pain, worse on right. 11:00 Reassessment: Patient appears in no apparent distress at this time. Patient and/or hb family updated on plan of care and expected duration. Pain level reassessed. Patient is alert, oriented x 3, equal unlabored respirations, skin warm/dry/pink. 12:00 Reassessment: Patient appears in no apparent distress at this time. Patient states hb feeling better. Patient states symptoms have improved. Vital Signs: 10:00 BP 154 / 88; Pulse 62; Resp 16; Temp 97.8; Pulse Ox 98% on R/A; Pain 8/10; hb 10:43 BP 119 / 76; Pulse 80; Resp 16; Pulse Ox 97% on R/A; hb 11:45 BP 126 / 76; Pulse 79; Resp 15; Pulse Ox 99% on R/A; Pain 4/10; hb ED Course: 09:59 Patient arrived in ED. hb 10:00 Charles Guillen PA is PHCP. jr8 10:00 López Jack MD is Attending Physician. jr8 10:01 Triage completed. hb 10:03 Arm band placed on. hb 10:15 Ivette Song, RN is Primary Nurse. hb 10:24 Initial lab(s) drawn, by me, sent to lab. Maintain EMS IV. Dressing intact. Good blood sr5 return noted. Site clean \T\ dry. Gauge \T\ site: 20 G. labs collected from existing site, wasted 10 mL blood prior to lab specimen collection, flushed easily with 10 mL NS. 10:44 Patient has correct armband on for positive identification. Bed in low position. Call hb light in reach. Side rails up X 1. 11:21 Basic Metabolic Panel Sent. sv 11:22 CBC with Diff Sent. sv 12:13 No provider procedures requiring assistance completed. IV discontinued, intact, hb bleeding controlled, No redness/swelling at site. Administered Medications: 10:20 Drug: Decadron - Dexamethasone 10 mg Route: IVP; Site: right antecubital; hb 10:55 Follow up: Response: No adverse reaction hb 10:20 Drug: TORadol - Ketorolac 15 mg Route: IVP; Site: right antecubital; hb 10:55 Follow up: Response: No adverse reaction hb 10:20 Drug: fentaNYL (PF) 50 mcg Route: IVP; Site: right antecubital; hb 10:54 Follow up: Response: No adverse reaction hb 10:21 Drug: Robaxin 1 grams Route: IVPB; Infused Over: 1 hrs; Site: right antecubital; hb 11:55 Drug: Potassium Chloride 40 mEq Route: PO; hb 12:12 Follow up: Response: Medication administered at discharge. hb Outcome: 11:55 Discharge ordered by MD. novak 12:13 Discharged to home via wheelchair. hb 12:13 Condition: stable 12:13 Discharge instructions given to patient, Instructed on discharge instructions, follow up and referral plans. medication usage, Demonstrated understanding of instructions, follow-up care, medications, Prescriptions given X 2. 12:14 Patient left the ED. hb Addendum: 05/17/2020 12:54 Addendum: Other bag with pts prescriptions sent to security. 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 Signatures: Ofelia Shabazz Stephanie RN RN Charles Kruse PA PA jr8 Ivette Song RN RN Carol, Tac[place] RN RN sr5
--- NOTE | 2020-05-16 11:56 | EDPHYS ---
Physician Documentation [facility] Name: Kyaw Ellington Jr Age: 84 yrs Sex: Male : 1935 Arrival Date: 05/16/2020 Time: 09:59 Bed 3 Private MD: ED Physician López Jack HPI: 05/16 10:44 This 84 yrs old Male presents to ER via EMS with complaints of Back Pain. jr8 10:44 The patient presents with pain that is acute. The symptoms are located in the low back. jr8 Onset: The symptoms/episode began/occurred acutely, yesterday. The pain does not radiate. Associated signs and symptoms: The patient has no apparent associated signs or symptoms. The problem was sustained when lifting . Modifying factors: The patient symptoms are alleviated by nothing, the patient symptoms are aggravated by any movement. Severity of symptoms: At their worst the symptoms were moderate, in the emergency department the symptoms are unchanged. The patient has experienced a previous episode. The patient has not recently seen a physician. Patient stated that he has history of low back pain with surgery from back in the 70s. Stated that he was lifting his and felt a pull in low back. Since then has had pain that will not decrease. Historical: - Allergies: 10:02 No Known Allergies; hb - Home Meds: 10:02 aspirin 81 mg Oral chew 1 tab once daily [Active]; cetirizine 10 mg Oral tab 1 tab once hb daily [Active]; dorzolamide-timolol (PF) ophthalmic 2 times per day [Active]; etodolac 200 mg Oral cap daily [Active]; hydrochlorothiazide 25 mg Oral tab 1 tab once daily [Active]; levothyroxine 75 mcg tab 1 tab once daily [Active]; lovastatin 40 mg Oral tab 2 times per day [Active]; metformin 500 mg Oral tr24 once daily [Active]; omeprazole 20 mg Oral cpDR 1 cap once daily [Active]; Striverdi Respimat 2.5 mcg/actuation inhalation mist 2 puffs once daily [Active]; timolol maleate 0.5 % Opht solg 1 drop once daily [Active]; Spiriva Respimat inhalation [Active]; - PMHx: 10:02 COLON CA; COPD; Diabetes - NIDDM; Hyperlipidemia; Hypertension; Hypothyroidism; hb PROSTATE CA; - PSHx: 10:02 Colon Surgery; Hernia repair; hb - Immunization history:: Adult Immunizations up to date. - Social history:: Smoking status: Patient denies any tobacco usage or history of. ROS: 10:44 Eyes: Negative for injury, pain, redness, and discharge, ENT: Negative for injury, jr8 pain, and discharge, Neck: Negative for injury, pain, and swelling, Cardiovascular: Negative for chest pain, palpitations, and edema, Respiratory: Negative for shortness of breath, cough, wheezing, and pleuritic chest pain, Abdomen/GI: Negative for abdominal pain, nausea, vomiting, diarrhea, and constipation, MS/Extremity: Negative for injury and deformity, Skin: Negative for injury, rash, and discoloration, Neuro: Negative for headache, weakness, numbness, tingling, and seizure. 10:44 Back: Positive for pain at rest, pain with movement, Negative for radiated pain. Exam: 10:44 Cardiovascular: Regular rate and rhythm with a normal S1 and S2. No gallops, murmurs, jr8 or rubs. Normal PMI, no JVD. No pulse deficits. Respiratory: Lungs have equal breath sounds bilaterally, clear to auscultation and percussion. No rales, rhonchi or wheezes noted. No increased work of breathing, no retractions or nasal flaring. Abdomen/GI: Soft, non-tender, with normal bowel sounds. No distension or tympany. No guarding or rebound. No evidence of tenderness throughout. Skin: Warm, dry with normal turgor. Normal color with no rashes, no lesions, and no evidence of cellulitis. MS/ Extremity: Pulses equal, no cyanosis. Neurovascular intact. Full, normal range of motion. Neuro: Awake and alert, GCS 15, oriented to person, place, time, and situation. Cranial nerves II-XII grossly intact. Motor strength 5/5 in all extremities. Sensory grossly intact. 10:44 Constitutional: The patient appears alert, awake, uncomfortable. 10:44 Back: pain, that is moderate, ROM is painful, with all movement, normal spinal alignment noted, CVA tenderness, is absent, vertebral tenderness, is not appreciated, Straight leg raises: right lower extremity illicits pain, at 15 degrees. Vital Signs: 10:00 BP 154 / 88; Pulse 62; Resp 16; Temp 97.8; Pulse Ox 98% on R/A; Pain 8/10; hb 10:43 BP 119 / 76; Pulse 80; Resp 16; Pulse Ox 97% on R/A; hb 11:45 BP 126 / 76; Pulse 79; Resp 15; Pulse Ox 99% on R/A; Pain 4/10; hb MDM: 10:01 Patient medically screened. jr8 11:54 Data reviewed: vital signs, nurses notes, lab test result(s). Data interpreted: Pulse jr8 oximetry: on room air is 97 %. Interpretation: normal. Counseling: I had a detailed discussion with the patient and/or guardian regarding: the historical points, exam findings, and any diagnostic results supporting the discharge/admit diagnosis, lab results, the need for outpatient follow up, a family practitioner, to return to the emergency department if symptoms worsen or persist or if there are any questions or concerns that arise at home. Response to treatment: the patient's symptoms have markedly improved after treatment. ED course: Patient with little to no pain at this time. Able to maneuver more readily without pain. Will d/c home with medication to help with sprain of low back. Knows to f/u with PCP and to not do any heavy lifting. Patient good with plan overall and will be sent home . 05/16 10:03 Order name: CBC with Diff [facility] 05/16 10:03 Order name: Basic Metabolic Panel [facility] 05/16 10:04 Order name: CBC with Automated Diff; Complete Time: 10:43 EDMS 05/16 10:04 Order name: Basic Metabolic Panel; Complete Time: 11:01 EDMS Administered Medications: 10:20 Drug: Decadron - Dexamethasone 10 mg Route: IVP; Site: right antecubital; hb 10:55 Follow up: Response: No adverse reaction hb 10:20 Drug: TORadol - Ketorolac 15 mg Route: IVP; Site: right antecubital; hb 10:55 Follow up: Response: No adverse reaction hb 10:20 Drug: fentaNYL (PF) 50 mcg Route: IVP; Site: right antecubital; hb 10:54 Follow up: Response: No adverse reaction hb 10:21 Drug: Robaxin 1 grams Route: IVPB; Infused Over: 1 hrs; Site: right antecubital; hb 11:55 Drug: Potassium Chloride 40 mEq Route: PO; hb 12:12 Follow up: Response: Medication administered at discharge. hb Disposition: 14:39 Co-signature as Attending Physician, López Jack MD. rn Disposition: 05/16/20 11:55 Discharged to Home. Impression: Low back pain. - Condition is Stable. - Discharge Instructions: Back Pain, Adult, Musculoskeletal Pain, Heat Therapy. - Prescriptions for meloxicam 7.5 mg Oral tablet - take 1 tablet by ORAL route once daily As needed; 12 tablet. Robaxin 500 mg Oral Tablet - take 2 tablet by ORAL route every 6 hours As needed; 40 tablet. - Medication Reconciliation Form, Thank You Letter, Antibiotic Education, Prescription Opioid Use form. - Follow up: Private Physician; When: 2 - 3 days; Reason: Recheck today's complaints, Continuance of care, Re-evaluation by your physician. - Problem is new. - Symptoms have improved. Signatures: Dispatcher [employer] EDLópez Verde MD MD rn Roszak, Josh, PA PA jr8 Ivette Song RN RN Corrections: (The following items were deleted from the chart) 12:14 11:55 05/16/2020 11:55 Discharged to Home. Impression: Low back pain. Condition is hb Stable. Forms are Medication Reconciliation Form, Thank You Letter, Antibiotic Education, Prescription Opioid Use. Follow up: Private Physician; When: 2 - 3 days; Reason: Recheck today's complaints, Continuance of care, Re-evaluation by your physician. Problem is new. Symptoms have improved. jr8
[2020-05-16] MEDS ORDERED: POTASSIUM CL SA 10 MEQ TAB PO ONE (12:15)
[2020-05-16 12:20] VITALS: TEMP 97.8
[2020-05-16 12:23] VITALS: BP 126/76; O2SAT 99
== END 2020-05-16 12:14 | disposition home or self-care (01) ==
LOC: ER 09:54
DX: M54.5 Low back pain (principal); J44.9 Chronic obstructive pulmonary disease, unspecified; E11.9 Type 2 diabetes mellitus without complications; E78.5 Hyperlipidemia, unspecified; I10 Essential (primary) hypertension; E03.9 Hypothyroidism, unspecified; Z85.46 Personal history of malignant neoplasm of prostate; Z85.038 Personal history of other malignant neoplasm of large intestine
CPT/HCPCS: 85025; 80048; 36415; J3010; J1100; J2800; 96374; 96375; 99284

== ENCOUNTER 2020-08-04 09:45 | Emergency (ER) | payer OTHER ==
--- NOTE | 2020-08-04 10:24 | RAD REPORT ---
EXAM DESCRIPTION: RAD - Chest Single View - 08/04/2020 10:04 am CLINICAL HISTORY: near syncope Chest pain. COMPARISON: Chest Single View dated 12/15/2018; Chest Pa And Lat (2 Views) dated 09/08/2018; Chest Pa And Lat (2 Views) dated 01/26/2017; CHEST PA AND LAT 2 VIEW dated 04/28/2015 FINDINGS: Portable technique limits examination quality. The lungs are mildly emphysematous but grossly clear. The heart is upper limit of normal in size. No displaced fractures. IMPRESSION: Mild COPD.
--- NOTE | 2020-08-04 10:36 | RAD REPORT ---
EXAM DESCRIPTION: CT - Head Brain Wo Cont - 08/04/2020 10:28 am CLINICAL HISTORY: near-syncope Headache, drowsiness COMPARISON: HEAD BRAIN W O CONTRAST dated 01/12/2009 TECHNIQUE: All CT scans are performed using dose optimization technique as appropriate and may inclu de automated exposure control or mA/KV adjustment according to patient size. FINDINGS: No intracranial hemorrhage, hydrocephalus or extra-axial fluid collection.Mild generalized brain atrophy is present with moderate periventricular and deep white matter chronic microvascular i schemic changes.No areas of brain edema or evidence of midline shift. The paranasal sinuses and mastoids are clear. The calvarium is intact. IMPRESSION: No acute intracranial abnormality.
[2020-08-04 10:54] LABS: Urine Blood Negative (Negative); Urine Glucose Negative (Negative); Urine Protein Negative (Negative)
[2020-08-04 10:58] LABS: Absolute Lymphocytes (CBC) 1.6 K/uL (0.7-4.9); Hematocrit 37.7 % (39.6-49.0); Lymphocytes % 27.3 % (15.3-44.8); MPV 7.5 fL (7.6-11.3)
[2020-08-04 11:05] LABS: Urine Bacteria NONE SEEN /HPF (NONE SEEN)
[2020-08-04 11:15] LABS: Protime INR 1.13
[2020-08-04 11:54] LABS: ALT/SGPT 21 U/L (12-78); AST/SGOT 15 U/L (15-37); Albumin 3.7 g/dL (3.4-5.0); Alkaline Phosphatase 74 U/L (45-117); BUN Blood Urea Nitrogen 16 mg/dL (7-18); Bicarbonate 29 mmol/L (21-32); Bilirubin Direct 0.1 mg/dL (0-0.2); Bilirubin Total 0.4 mg/dL (0.2-1.0); Glucose Level 102 mg/dL (74-106); NT PRO-BNP 134 pg/mL (<450); Potassium 3.6 mmol/L (3.5-5.1); Protein, Total 8.2 g/dL (6.4-8.2); Sodium Level 136 mmol/L (136-145); Troponin (Emerg Dept Use Only) < 0.02 ng/mL (0.0-0.045)
--- NOTE | 2020-08-04 12:44 | ER ---
Nurse's Notes [facility] Name: Kyaw Ellington Jr Age: 84 yrs Sex: Male : 1935 Arrival Date: 08/04/2020 Time: 09:46 Bed 2 Private MD: Diagnosis: Dizziness and giddiness Presentation: 08/04 09:47 Chief complaint: EMS states: Near syncopal episode while attempting to lift large sack hb of birdseed. Coronavirus screen: At this time, the client does not indicate any symptoms associated with coronavirus-19. Ebola Screen: No symptoms or risks identified at this time. Initial Sepsis Screen: Does the patient meet any 2 criteria? No. Patient's initial sepsis screen is negative. Does the patient have a suspected source of infection? No. Patient's initial sepsis screen is negative. Risk Assessment: Do you want to hurt yourself or someone else? Patient reports no desire to harm self or others. Onset of symptoms was August 04, 2020. 09:47 Method Of Arrival: EMS: [facility] 09:47 Acuity: JAME 3 hb Historical: - Allergies: 09:49 No Known Allergies; hb - Home Meds: 11:11 aspirin 81 mg Oral chew 1 tab once daily [Active]; cetirizine 10 mg Oral tab 1 tab once hb daily [Active]; dorzolamide-timolol (PF) ophthalmic 2 times per day [Active]; etodolac 200 mg Oral cap daily [Active]; hydrochlorothiazide 25 mg Oral tab 1 tab once daily [Active]; levothyroxine 75 mcg tab 1 tab once daily [Active]; lovastatin 40 mg Oral tab 2 times per day [Active]; metformin 500 mg Oral tr24 once daily [Active]; omeprazole 20 mg Oral cpDR 1 cap once daily [Active]; Spiriva Respimat inhalation [Active]; Striverdi Respimat 2.5 mcg/actuation inhalation mist 2 puffs once daily [Active]; timolol maleate 0.5 % Opht solg 1 drop once daily [Active]; - PMHx: 09:49 COPD; Diabetes - NIDDM; COLON CA; Hyperlipidemia; Hypertension; Hypothyroidism; hb PROSTATE CA; - PSHx: 09:49 Colon Surgery; Hernia repair; hb - Immunization history:: Adult Immunizations up to date. - Social history:: Smoking status: Patient denies any tobacco usage or history of. Screenin:00 Abuse screen: Denies threats or abuse. Denies injuries from another. Nutritional hb screening: No deficits noted. Tuberculosis screening: No symptoms or risk factors identified. Fall Risk Total Lu Fall Scale indicates Low Risk Score (25-44 pts). Fall prevention measures have been instituted. Frequent Obs/Assesments occuring As available Patient and Family Educated on Fall Prevention Program and strategies. Assessment: 10:00 General: Appears in no apparent distress. Behavior is calm, cooperative. Pain: Denies hb pain. Neuro: Level of Consciousness is awake, alert, obeys commands, Oriented to person, place, time, situation. Cardiovascular: Patient's skin is warm and dry. Rhythm is regular. Respiratory: Respiratory effort is even, unlabored, Respiratory pattern is regular, symmetrical. GI: No signs and/or symptoms were reported involving the gastrointestinal system. : No signs and/or symptoms were reported regarding the genitourinary system. EENT: No signs and/or symptoms were reported regarding the EENT system. Derm: Skin is pink, warm \T\ dry. Musculoskeletal: No signs and/or symptoms reported regarding the musculoskeletal system. 11:00 Reassessment: Patient appears in no apparent distress at this time. Patient and/or hb family updated on plan of care and expected duration. Pain level reassessed. Patient is alert, oriented x 3, equal unlabored respirations, skin warm/dry/pink. 12:00 Reassessment: Patient appears in no apparent distress at this time. Patient and/or hb family updated on plan of care and expected duration. Pain level reassessed. Patient is alert, oriented x 3, equal unlabored respirations, skin warm/dry/pink. 13:00 Reassessment: Patient appears in no apparent distress at this time. Patient and/or hb family updated on plan of care and expected duration. Pain level reassessed. Patient is alert, oriented x 3, equal unlabored respirations, skin warm/dry/pink. Vital Signs: 09:47 BP 172 / 82; Pulse 81; Resp 14; Temp 97.8; Pulse Ox 98% on R/A; Pain 0/10; hb 10:30 BP 127 / 73; Pulse 78; Resp 10; Pulse Ox 98% on R/A; kj1 11:08 BP 149 / 78; Pulse 79; Resp 14; Pulse Ox 100% on R/A; hb 11:45 BP 151 / 80 Supine; Pulse 85; Pulse Ox 97% on R/A; kj1 11:45 BP 166 / 84 Sitting; Pulse 81; Pulse Ox 97% on R/A; kj1 11:45 BP 147 / 85 Standing; Pulse 85; Pulse Ox 97% on R/A; kj1 13:00 BP 146 / 84; Pulse 81; Resp 15; Pulse Ox 99% on R/A; hb ED Course: 09:46 Patient arrived in ED. hb 09:47 Madi Arvizu PA is PHCP. cp 09:47 Leonard Arriaza MD is Attending Physician. cp 09:48 Triage completed. hb 09:49 Arm band placed on. hb 10:04 XRAY Chest (1 view) In Process Unspecified. EDMS 10:29 CT Head Brain wo Cont In Process Unspecified. EDMS 10:33 Ivette Song RN is Primary Nurse. hb 10:45 Initial lab(s) drawn, by ri, sent to lab. Inserted saline lock: 20 gauge in right kj1 antecubital area, using aseptic technique. Blood collected. 11:00 Patient has correct armband on for positive identification. Bed in low position. Call hb light in reach. 13:32 No provider procedures requiring assistance completed. hb 13:32 IV discontinued, intact, bleeding controlled, No redness/swelling at site. Pressure hb dressing applied. Administered Medications: 11:07 Drug: NS 0.9% 250 ml Route: IV; Rate: 100 ml/hr; Site: left antecubital; hb 11:08 Drug: NS 0.9% 250 ml Route: IV; Rate: bolus; Site: left antecubital; hb Outcome: 12:43 Discharge ordered by MD. cp 13:32 Discharged to home via wheelchair, with family. hb 13:32 Condition: stable 13:32 Discharge instructions given to patient, Instructed on discharge instructions, follow up and referral plans. medication usage, Demonstrated understanding of instructions, follow-up care, medications. 13:34 Patient left the ED. hb Signatures: Dispatcher [employer] EDMS Madi Arvizu PA PA cp Baxter, Heather, RN RN Poly Holt kj1 Corrections: (The following items were deleted from the chart) 11:10 11:00 Fall Risk None identified. hb hb
--- NOTE | 2020-08-04 12:44 | EDPHYS ---
Physician Documentation [facility] Name: Kyaw Ellington Jr Age: 84 yrs Sex: Male : 1935 Arrival Date: 08/04/2020 Time: 09:46 Bed 2 Private MD: ED Physician Leonard Arriaza HPI: 08/04 10:00 This 84 yrs old Male presents to ER via EMS with complaints of Near Syncope. cp 10:00 The patient has experienced near-syncope, felt dizzy, felt faint. Onset: The symptoms/episode began/occurred today. Duration: The patient has had multiple episodes. Associated injury: The patient did not suffer any apparent associated injury. 10:00 Associated signs and symptoms: Pertinent positives: lightheadedness, near syncope, cp Pertinent negatives: abdominal pain, chest pain, confusion, diaphoresis, headache, palpitations, weakness. 10:00 Patient reports symptoms started shortly after bending over and then standing up at home. Patient admits to fasting since last night for blood draw this morning. Historical: - Allergies: :49 No Known Allergies; hb - Home Meds: 11:11 aspirin 81 mg Oral chew 1 tab once daily [Active]; cetirizine 10 mg Oral tab 1 tab once hb daily [Active]; dorzolamide-timolol (PF) ophthalmic 2 times per day [Active]; etodolac 200 mg Oral cap daily [Active]; hydrochlorothiazide 25 mg Oral tab 1 tab once daily [Active]; levothyroxine 75 mcg tab 1 tab once daily [Active]; lovastatin 40 mg Oral tab 2 times per day [Active]; metformin 500 mg Oral tr24 once daily [Active]; omeprazole 20 mg Oral cpDR 1 cap once daily [Active]; Spiriva Respimat inhalation [Active]; Striverdi Respimat 2.5 mcg/actuation inhalation mist 2 puffs once daily [Active]; timolol maleate 0.5 % Opht solg 1 drop once daily [Active]; - PMHx: 09:49 COPD; Diabetes - NIDDM; COLON CA; Hyperlipidemia; Hypertension; Hypothyroidism; hb PROSTATE CA; - PSHx: 09:49 Colon Surgery; Hernia repair; hb - Immunization history:: Adult Immunizations up to date. - Social history:: Smoking status: Patient denies any tobacco usage or history of. ROS: 10:05 Constitutional: Negative for body aches, chills, fever, poor PO intake. cp 10:05 Eyes: Negative for injury, pain, redness, and discharge. cp 10:05 ENT: Negative for ear pain, sore throat, difficulty swallowing, difficulty handling secretions. 10:05 Cardiovascular: Negative for chest pain, edema, palpitations. 10:05 Respiratory: Negative for cough, shortness of breath, wheezing. 10:05 Abdomen/GI: Negative for abdominal pain, nausea, vomiting, and diarrhea. 10:05 Neuro: Positive for dizziness, near syncope, Negative for altered mental status, headache, numbness, syncope, weakness. 10:05 All other systems are negative. Exam: 10:12 Constitutional: The patient appears in no acute distress, alert, awake, cp non-diaphoretic, non-toxic, well developed, well nourished. 10:12 Head/Face: Normocephalic, atraumatic. cp 10:12 Eyes: Periorbital structures: appear normal, Pupils: equal, round, and reactive to light and accomodation, Extraocular movements: intact throughout, Conjunctiva: normal, no exudate, no injection, Sclera: no appreciated abnormality, Lids and lashes: appear normal, bilaterally. 10:12 ENT: External ear(s): are unremarkable, Ear canal(s): are normal, TM's: dullness, bilaterally, Nose: is normal, Mouth: Lips: moist, Oral mucosa: moist, Posterior pharynx: Airway: no evidence of obstruction, patent. 10:12 Neck: ROM/movement: is normal, is supple, without pain, no range of motions limitations. 10:12 Chest/axilla: Inspection: normal, Palpation: is normal, no crepitus, no tenderness. 10:12 Cardiovascular: Rate: normal, Rhythm: regular, Edema: is not appreciated, JVD: is not appreciated. 10:12 Respiratory: the patient does not display signs of respiratory distress, Respirations: normal, no use of accessory muscles, no retractions, labored breathing, is not present, Breath sounds: are clear throughout, no decreased breath sounds. 10:12 Abdomen/GI: Inspection: abdomen appears normal, Palpation: abdomen is soft and non-tender, in all quadrants. 10:12 Neuro: Orientation: to person, place \T\ time. Mentation: is normal, Cerebellar function: Romberg testing is negative, Motor: moves all fours, strength is normal, Sensation: is normal. 13:30 ECG was reviewed by the Attending Physician. Vital Signs: 09:47 BP 172 / 82; Pulse 81; Resp 14; Temp 97.8; Pulse Ox 98% on R/A; Pain 0/10; hb 10:30 BP 127 / 73; Pulse 78; Resp 10; Pulse Ox 98% on R/A; kj1 11:08 BP 149 / 78; Pulse 79; Resp 14; Pulse Ox 100% on R/A; hb 11:45 BP 151 / 80 Supine; Pulse 85; Pulse Ox 97% on R/A; kj1 11:45 BP 166 / 84 Sitting; Pulse 81; Pulse Ox 97% on R/A; kj1 11:45 BP 147 / 85 Standing; Pulse 85; Pulse Ox 97% on R/A; kj1 13:00 BP 146 / 84; Pulse 81; Resp 15; Pulse Ox 99% on R/A; hb MDM: 10:00 Patient medically screened. 12:42 Data reviewed: vital signs, nurses notes, lab test result(s), EKG, radiologic studies, cp CT scan, plain films. 12:42 Test interpretation: by ED physician or midlevel provider: ECG, plain radiologic cp studies. Counseling: I had a detailed discussion with the patient and/or guardian regarding: the historical points, exam findings, and any diagnostic results supporting the discharge/admit diagnosis, lab results, radiology results, to return to the emergency department if symptoms worsen or persist or if there are any questions or concerns that arise at home. Response to treatment: the patient's symptoms have markedly improved after treatment, and as a result, I will discharge patient. 08/04 09:48 Order name: Basic Metabolic Panel; Complete Time: 12:21 cp 08/04 12:21 Interpretation: Normal except: GFR 74. 08/04 09:48 Order name: CBC with Diff; Complete Time: 11:48 cp 08/04 11:48 Interpretation: Normal except: RBC 4.20; HGB 12.3; HCT 37.7; MPV 7.5. 08/04 09:48 Order name: LFT's; Complete Time: 12:21 cp 06/10 12:22 Interpretation: Normal except: GLOB 4.5; A/G 0.8. cp 08/04 09:48 Order name: Magnesium; Complete Time: 12:21 cp 08/04 09:48 Order name: NT PRO-BNP; Complete Time: 12:21 cp 08/04 09:48 Order name: PT-INR; Complete Time: 11:48 cp 08/04 09:48 Order name: Troponin (emerg Dept Use Only); Complete Time: 12:21 cp 08/04 12:22 Interpretation: Within normal limits: TROPED < 0.02. cp 08/04 09:48 Order name: XRAY Chest (1 view); Complete Time: 10:39 cp 08/04 10:39 Interpretation: Report reviewed. cp 08/04 09:48 Order name: EKG; Complete Time: 09:49 cp 08/04 09:48 Order name: Urine Microscopic Only; Complete Time: 11:48 cp 08/04 11:48 Interpretation: Normal except: URBC 10-20. cp 08/04 10:01 Order name: CT Head Brain wo Cont; Complete Time: 10:39 cp 08/04 12:22 Interpretation: Report reviewed. cp 08/04 10:53 Order name: Urine Dipstick-Ancillary; Complete Time: 11:48 EDMS 08/04 12:22 Interpretation: Normal except: UPH 8.0. cp 08/04 09:48 Order name: Orthostatics; Complete Time: 12:00 cp 08/04 09:48 Order name: Cardiac monitoring; Complete Time: 11:08 cp 08/04 09:48 Order name: EKG - Nurse/Tech; Complete Time: 11:08 cp 08/04 09:48 Order name: IV Saline Lock; Complete Time: 11:08 cp 08/04 09:48 Order name: Labs collected and sent; Complete Time: 11:08 cp 08/04 09:48 Order name: O2 Per Protocol; Complete Time: 11:08 cp 08/04 09:48 Order name: O2 Sat Monitoring; Complete Time: 11:08 cp 08/04 09:48 Order name: Urine Dipstick-Ancillary (obtain specimen); Complete Time: 11:08 cp EC:30 Rate is 86 beats/min. Rhythm is regular. NE interval is normal. QRS interval is normal. cp QT interval is normal. T waves are Inverted in lead aVR. Interpreted by me. Reviewed by me. Administered Medications: 11:07 Drug: NS 0.9% 250 ml Route: IV; Rate: 100 ml/hr; Site: left antecubital; hb 11:08 Drug: NS 0.9% 250 ml Route: IV; Rate: bolus; Site: left antecubital; hb Disposition: 08/05 07:01 Co-signature as Attending Physician, Leoanrd Arriaza MD I agree with the assessment and kdr plan of care. Disposition: 08/04/20 12:43 Discharged to Home. Impression: Dizziness and giddiness. - Condition is Stable. - Discharge Instructions: Dizziness, Near-Syncope. - Medication Reconciliation Form, Thank You Letter, Antibiotic Education, Prescription Opioid Use form. - Follow up: Private Physician; When: 1 - 2 days; Reason: Recheck today's complaints. - Problem is new. - Symptoms have improved. Signatures: Dispatcher [employer] EDMS Leonard Arriaza MD MD kdr Madi Arvizu PA PA cp Ivette Song RN RN Corrections: (The following items were deleted from the chart) 08/04 13:34 12:43 08/04/2020 12:43 Discharged to Home. Impression: Dizziness and giddiness. hb Condition is Stable. Forms are Medication Reconciliation Form, Thank You Letter, Antibiotic Education, Prescription Opioid Use. Follow up: Private Physician; When: 1 - 2 days; Reason: Recheck today's complaints. Problem is new. Symptoms have improved. cp
[2020-08-04 13:44] VITALS: TEMP 97.8
[2020-08-04 13:50] VITALS: BP 146/84; O2SAT 99
== END 2020-08-04 13:34 | disposition home or self-care (01) ==
LOC: ER 09:45
DX: R42 Dizziness and giddiness (principal); I10 Essential (primary) hypertension; E11.9 Type 2 diabetes mellitus without complications; Z79.82 Long term (current) use of aspirin; Z85.46 Personal history of malignant neoplasm of prostate; Z85.038 Personal history of other malignant neoplasm of large intestine
CPT/HCPCS: 36415; 70450; 71045; 80048; 80076; 81003; 81015; 83735; 83880; 84484; 85025; 85610; 93005; 96374; 99284

== ENCOUNTER 2021-01-25 16:57 | Inpatient (IN) | payer OTHER ==
--- OUTSIDE RECORDS SUMMARY | 2021-01-25 17:00 | XMS REPORT | Continuity of Care Document ---
:1935 Author Organization [facility] t Address [address] [place] [address] [place] [id number] Care Team Providers Name Role Phone JAMES Attending Clinician Unavailable Maluf_C Attending Clinician Unavailable Maluf_C Admitting Clinician Unavailable Payers Payer Name Policy Type Policy Number Effective Date Expiration Date S christiano MEDICARE PART A [id number] 2004 AND B 00:00:00 MEDICARE B-[place]: [id number] 1999 [employer] 00:00:00 [facility] [id number] 2010 LIFE \T\ ACCIDENT 00:00:00 [employer] (MEDICARE SUPPLEMENT) Problems This patient has no known problems. Allergies, Adverse Reactions, Alerts This patient has no known allergies or adverse reactions. Medications This patient has no known medications. Procedures This patient has no known procedures. Encounters Start End Encounter Admission Attending Care Care Encounter Source Date/Time Date/Time Type Type Clinicians Facility Department ID 2020-12-28 Outpatient [facility] [id number] [place] 10:37:54 [facility] 2016-01-17 2016-01-17 Outpatient Len[facility]C [facility] [id number] [place] 03:16:00 03:16:00 [id number] Results This patient has no known results.
[2021-01-25 18:11] LABS: Basophils % 0.7 % (0-1.3); Hematocrit 34.2 % (39.6-49.0); Lymphocytes % 28.4 % (15.3-44.8); MPV 7.5 fL (7.6-11.3); Protime INR 1.15; RBC Red Blood Cell Count 3.77 M/uL (4.33-5.43)
--- NOTE | 2021-01-25 18:20 | RAD REPORT ---
EXAM DESCRIPTION: Zoltan Single View01/25/2021 6:07 pm CLINICAL HISTORY: Shortness of breath COMPARISON: July 2020 FINDINGS: Lungs are hyperaerated. The lungs appear clear of acute infiltrate. The heart is mildly enlarged IMPRESSION: Hyperaerated lungs consistent with COPD. No acute abnormality seen
[2021-01-25 18:27] LABS: ALT/SGPT 15 U/L (12-78); AST/SGOT 13 U/L (15-37); Albumin 3.2 g/dL (3.4-5.0); Alkaline Phosphatase 79 U/L (45-117); BUN Blood Urea Nitrogen 14 mg/dL (7-18); Bicarbonate 30 mmol/L (21-32); Bilirubin Direct < 0.1 mg/dL (0-0.2); Bilirubin Total 0.2 mg/dL (0.2-1.0); Glucose Level 115 mg/dL (74-106); Magnesium 1.8 mg/dL (1.8-2.4); NT PRO-BNP 429 pg/mL (<450); Potassium 3.4 mmol/L (3.5-5.1); Sodium Level 131 mmol/L (136-145); Troponin (Emerg Dept Use Only) < 0.02 ng/mL (0.0-0.045)
[2021-01-25] MEDS ORDERED: AZITHROMYCIN 250 MG TAB ONE (19:08)
[2021-01-25] MEDS ORDERED: METHYLPREDNISOLONE 125 MG INJ ONE (19:08)
[2021-01-25] MEDS ORDERED: CEFTRIAXONE 1000 MG/VIAL ONE (19:09)
[2021-01-25] MEDS ORDERED: LEVALBUTEROL 1.25 MG/3 ML NEB ONE (19:09)
[2021-01-25] MEDS ORDERED: ENOXAPARIN 80 MG/0.8 ML SQ ONE (19:10)
[2021-01-25] MEDS ORDERED: POTASSIUM 25 MEQ EFFERV TAB ONE (19:10)
--- NOTE | 2021-01-25 19:10 | ER ---
Nurse's Notes [facility] Name: Kyaw Ellington Jr Age: 85 yrs Sex: Male : 1935 Arrival Date: 01/25/2021 Time: 17:15 Bed 24 Private MD: Diagnosis: Dyspnea;COPD/ Chronic obstructive pulmonary disease with (acute) exacerbation;Hypokalemia Presentation: 01/25 17:16 Chief complaint: Patient states: SOB for 1 day. No fever. Chief complaint: EMS states: ll1 Given A\T\A treatment en route. Fingerstick 97. Coronavirus screen: Vaccine status: Patient reports receiving the 2nd dose of the covid vaccine. Client denies travel out of the [place] in the last 14 days. cough unrelated to allergies, difficulty breathing, shortness of breath, Client presents with at least one sign or symptom that may indicate coronavirus-19. Standard/surgical mask placed on the client. Ebola Screen: Patient denies travel to an Ebola-affected area in the 21 days before illness onset. Initial Sepsis Screen: Does the patient meet any 2 criteria? No. Patient's initial sepsis screen is negative. Does the patient have a suspected source of infection? Yes: Productive cough/pneumonia. Risk Assessment: Do you want to hurt yourself or someone else? Patient reports no desire to harm self or others. Onset of symptoms was January 25, 2021. 17:16 Method Of Arrival: EMS ll1 17:16 Acuity: JAME 3 ll1 Triage Assessment: 19:15 General: Appears in no apparent distress. Respiratory: Reports shortness of breath the mr2 patient has mild shortness of breath. 19:20 Respiratory: Onset: The symptoms/episode began/occurred. mr2 19:20 General: Appears Behavior is calm, cooperative. mr2 Historical: - Allergies: 17:17 No Known Allergies; ll1 - PMHx: 17:17 COLON CA; Hypertension; Hypothyroidism; Hyperlipidemia; Diabetes - NIDDM; COPD; ll1 PROSTATE CA; - Immunization history:: Client reports receiving the 2nd dose of the Covid vaccine. - Social history:: Smoking status: unknown. Screenin:41 Abuse screen: Denies threats or abuse. Nutritional screening: No deficits noted. ll1 Tuberculosis screening: No symptoms or risk factors identified. Fall Risk IV access (20 points). Total Lu Fall Scale indicates No Risk (0-24 pts). Assessment: 17:22 Cardiovascular: Rhythm is sinus rhythm with unifocal PVCs. ll1 17:39 General: Appears in no apparent distress. Behavior is calm, cooperative, appropriate ll1 for age, Smells of. Pain: Denies pain. Neuro: No deficits noted. 18:50 Reassessment: No changes from previously documented assessment. Patient and/or family ll1 updated on plan of care and expected duration. Pain level reassessed. Patient is alert, oriented x 3, equal unlabored respirations, skin warm/dry/pink. Respiratory: Airway is patent Trachea midline Respiratory effort is even, unlabored, Breath sounds are clear bilaterally. Vital Signs: 17:16 BP 167 / 77; Pulse 73; Resp 18; Temp 98.2; Pulse Ox 96% ; Pain 0/10; ll1 18:49 BP 159 / 77; Pulse 71; Resp 17; Pulse Ox 97% on R/A; ll1 19:13 Weight 79.38 kg; mr2 21:00 BP 151 / 76; Pulse 77; Resp 18; Temp 98.4; Pulse Ox 98% on R/A; mr2 ED Course: 17:15 Patient arrived in ED. ll1 17:17 Triage completed. ll1 17:18 Arm band placed on Patient placed in an exam room, on a stretcher. ll1 17:26 Bridget Abdul, RN is Primary Nurse. ll1 17:26 EKG completed in triage. Results shown to MD. ll1 17:35 Inserted saline lock: 22 gauge in right antecubital area, using aseptic technique. ll1 Blood collected. 17:42 Patient has correct armband on for positive identification. Bed in low position. Call ll1 light in reach. Side rails up X 1. Pulse ox on. NIBP on. 17:48 Madi Mendoza MD is Attending Physician. hernan 18:07 XRAY Chest (1 view) In Process Unspecified. EDMS 19:06 Hernando Fajardo is Hospitalizing Provider. [facility] 19:14 Primary Nurse role handed off by Bridget Abdul, RN mr2 19:14 Omkar Oliva, LUC is Primary Nurse. mr2 20:00 No provider procedures requiring assistance completed. Patient admitted, IV remains in mr2 place. 21:28 D-Dimer Sent. mr2 Administered Medications: 19:12 Drug: SOLU-Medrol (methylPrednisoLONE) 125 mg Route: IVP; Site: left antecubital; mr2 19:12 Drug: Rocephin (cefTRIAXone) 1 grams Route: IV; Rate: per protocol; Site: left mr2 antecubital; 19:12 Drug: Zithromax (azithromycin) 500 mg Route: PO; mr2 19:12 Drug: Potassium Effervescent Tablet 50 mEq Route: PO; mr2 19:15 Drug: Lovenox (enoxaparin) 1 mg/kg Route: Sub-Q; Site: abdomen; mr2 19:21 Drug: Xopenex (levalbuterol) 3.75 mg Route: Inhalation; mr2 19:21 Drug: AtroVENT (ipratropium) Aerosol 0.5 mg Route: Inhalation; mr2 19:21 Drug: Pepcid (famotidine) 20 mg Route: IVP; Site: left antecubital; mr2 19:21 Drug: Magnesium Sulfate 1 grams Route: IVPB; Infused Over: 1 hrs; Site: left mr2 antecubital; Outcome: 19:09 Decision to Hospitalize by Provider. hernan 20:00 Admitted to Med/surg accompanied by nurse, via wheelchair. mr2 20:00 Condition: stable 20:00 Instructed on the need for admit. 21:19 Patient left the ED. mr2 Signatures: Dispatcher [employer] Madi Tomlinson MD MD cha Lewis, Lynsay, LUC RN ll1 Omkar Oliva RN RN mr2
--- NOTE | 2021-01-25 19:10 | EDPHYS ---
Physician Documentation [facility] Name: Kyaw Ellington Jr Age: 85 yrs Sex: Male : 1935 Arrival Date: 01/25/2021 Time: 17:15 Bed 24 Private MD: ED Physician Madi Mendoza HPI: 01/25 19:03 This 85 yrs old Male presents to ER via EMS with complaints of Shortness Of hernan Breath. 19:03 The patient has shortness of breath at rest, with light activity. Onset: The hernan symptoms/episode began/occurred 2 day(s) ago. Duration: The symptoms are continuous, and are steadily getting worse. The patient's shortness of breath is aggravated by coughing. Associated signs and symptoms: Pertinent positives: non-productive cough, dizziness. Severity of symptoms: At their worst the symptoms were mild moderate in the emergency department the symptoms have improved mildly. The patient has experienced similar episodes in the past, a few times. Historical: - Allergies: 17:17 No Known Allergies; ll1 - PMHx: 17:17 COLON CA; Hypertension; Hypothyroidism; Hyperlipidemia; Diabetes - NIDDM; COPD; ll1 PROSTATE CA; - Immunization history:: Client reports receiving the 2nd dose of the Covid vaccine. - Social history:: Smoking status: unknown. ROS: 19:04 Constitutional: Negative for fever, chills, and weight loss, Eyes: Negative for injury, hernan pain, redness, and discharge, ENT: Negative for injury, pain, and discharge, Neck: Negative for injury, pain, and swelling, Cardiovascular: Negative for chest pain, palpitations, and edema, Abdomen/GI: Negative for abdominal pain, nausea, vomiting, diarrhea, and constipation, Back: Negative for injury and pain, : Negative for injury, bleeding, discharge, and swelling, MS/Extremity: Negative for injury and deformity, Skin: Negative for injury, rash, and discoloration, Neuro: Negative for headache, weakness, numbness, tingling, and seizure, Psych: Negative for depression, anxiety, suicide ideation, homicidal ideation, and hallucinations, Allergy/Immunology: Negative for hives, rash, and allergies, Endocrine: Negative for neck swelling, polydipsia, polyuria, polyphagia, and marked weight changes. 19:04 Respiratory: Positive for cough, with no reported sputum, dyspnea on exertion, shortness of breath, at rest. Exam: 19:04 Constitutional: This is a well developed, well nourished patient who is awake, alert, hernan and in no acute distress. Head/Face: Normocephalic, atraumatic. Eyes: Pupils equal round and reactive to light, extra-ocular motions intact. Lids and lashes normal. Conjunctiva and sclera are non-icteric and not injected. Cornea within normal limits. Periorbital areas with no swelling, redness, or edema. ENT: Nares patent. No nasal discharge, no septal abnormalities noted. Tympanic membranes are normal and external auditory canals are clear. Oropharynx with no redness, swelling, or masses, exudates, or evidence of obstruction, uvula midline. Mucous membranes moist. Neck: Trachea midline, no thyromegaly or masses palpated, and no cervical lymphadenopathy. Supple, full range of motion without nuchal rigidity, or vertebral point tenderness. No Meningismus. Chest/axilla: Normal chest wall appearance and motion. Nontender with no deformity. No lesions are appreciated. Cardiovascular: Regular rate and rhythm with a normal S1 and S2. No gallops, murmurs, or rubs. Normal PMI, no JVD. No pulse deficits. Abdomen/GI: Soft, non-tender, with normal bowel sounds. No distension or tympany. No guarding or rebound. No evidence of tenderness throughout. Back: No spinal tenderness. No costovertebral tenderness. Full range of motion. Male : Normal genitalia with no discharge or lesions. Skin: Warm, dry with normal turgor. Normal color with no rashes, no lesions, and no evidence of cellulitis. MS/ Extremity: Pulses equal, no cyanosis. Neurovascular intact. Full, normal range of motion. Neuro: Awake and alert, GCS 15, oriented to person, place, time, and situation. Cranial nerves II-XII grossly intact. Motor strength 5/5 in all extremities. Sensory grossly intact. Cerebellar exam normal. Normal gait. Psych: Awake, alert, with orientation to person, place and time. Behavior, mood, and affect are within normal limits. 19:04 Respiratory: mild respiratory distress is noted, Respirations: labored breathing, that is mild, Breath sounds: decreased breath sounds, that are moderate, are scattered, rhonchi, are not appreciated, stridor, is not appreciated, Respiratory rate: 22 19:13 ECG was reviewed by the Attending Physician. [facility] Vital Signs: 17:16 BP 167 / 77; Pulse 73; Resp 18; Temp 98.2; Pulse Ox 96% ; Pain 0/10; ll1 18:49 BP 159 / 77; Pulse 71; Resp 17; Pulse Ox 97% on R/A; ll1 19:13 Weight 79.38 kg; mr2 21:00 BP 151 / 76; Pulse 77; Resp 18; Temp 98.4; Pulse Ox 98% on R/A; mr2 MDM: 17:48 Patient medically screened. hernan 19:11 Differential diagnosis: asthma, Bronchitis CHF exacerbation, Chronic Obstructive hernan Pulmonary Disease Myocardial Infarction pneumonia. Antibiotic administration: Rocephin and Zithromax given. The patient's Wells Deep Vein Thrombosis Score was calculated as follows: Total Score: 0-2 Pts- Low Risk. The patient's pulmonary embolism risk score was calculated as follows: Total Score: 0-2 points. This patient was found to be at low risk for a pulmonary embolism by using the Well's assessment criteria. Immunization status: Pneumococcal vaccine: Influenza vaccine: Data reviewed: vital signs, nurses notes, lab test result(s), EKG, radiologic studies, plain films. Data interpreted: cage operator: rate is 71 beats/min, rhythm is regular, Pulse oximetry: on room air is 97 %. Test interpretation: by ED physician or midlevel provider: ECG, plain radiologic studies. Counseling: I had a detailed discussion with the patient and/or guardian regarding: the historical points, exam findings, and any diagnostic results supporting the discharge/admit diagnosis, lab results, radiology results, the need for further work-up and treatment in the hospital. 01/25 17:43 Order name: Basic Metabolic Panel; Complete Time: 18:54 ll1 01/25 17:43 Order name: CBC with Diff; Complete Time: 18:54 ll1 01/25 17:43 Order name: LFT's; Complete Time: 18:54 ll1 01/25 17:43 Order name: Magnesium; Complete Time: 18:54 ll1 12 17:43 Order name: NT PRO-BNP; Complete Time: 18:54 ll1 01/25 17:43 Order name: PT-INR ll1 01/25 17:43 Order name: Troponin (emerg Dept Use Only); Complete Time: 18:54 1 01/25 17:43 Order name: XRAY Chest (1 view); Complete Time: 18:54 1 01/25 17:47 Order name: Blood Culture Adult (2) [facility] 01/25 17:47 Order name: Lactate; Complete Time: 18:54 [facility] 01/25 17:47 Order name: SARS-COV-2 RT PCR (Document "Date of Onset" if Symptomatic); Complete Time: hernan 19:03 01/25 19:23 Order name: D-Dimer [facility] 01/25 17:43 Order name: EKG; Complete Time: 17:44 1 01/25 17:43 Order name: Cardiac monitoring; Complete Time: 17:43 1 01/25 17:43 Order name: EKG - Nurse/Tech; Complete Time: 17:43 1 01/25 17:43 Order name: IV Saline Lock; Complete Time: 17:43 1 01/25 17:43 Order name: Labs collected and sent; Complete Time: 17:43 1 01/25 17:43 Order name: O2 Per Protocol; Complete Time: 17:43 1 01/25 17:43 Order name: O2 Sat Monitoring; Complete Time: 17:43 1 01/25 19:23 Order name: CONS Physician Consult EDWA EC:13 Rate is 74 beats/min. Rhythm is regular. QRS [place] is Normal. CT interval is normal. QRS hernan interval is normal. QT interval is normal. No Q waves. T waves are Normal. No ST changes noted. Clinical impression: NSR w/ Non-specific ST/T Changes and No evidence of ischemia. Interpreted by me. Reviewed by me. Administered Medications: 19:12 Drug: SOLU-Medrol (methylPrednisoLONE) 125 mg Route: IVP; Site: left antecubital; mr2 19:12 Drug: Rocephin (cefTRIAXone) 1 grams Route: IV; Rate: per protocol; Site: left mr2 antecubital; 19:12 Drug: Zithromax (azithromycin) 500 mg Route: PO; mr2 19:12 Drug: Potassium Effervescent Tablet 50 mEq Route: PO; mr2 19:15 Drug: Lovenox (enoxaparin) 1 mg/kg Route: Sub-Q; Site: abdomen; mr2 19:21 Drug: Xopenex (levalbuterol) 3.75 mg Route: Inhalation; mr2 19:21 Drug: AtroVENT (ipratropium) Aerosol 0.5 mg Route: Inhalation; mr2 19:21 Drug: Pepcid (famotidine) 20 mg Route: IVP; Site: left antecubital; mr2 19:21 Drug: Magnesium Sulfate 1 grams Route: IVPB; Infused Over: 1 hrs; Site: left mr2 antecubital; Disposition Summary: 01/25/21 19:09 Hospitalization Ordered Hospitalization Status: Observation hernan Provider: Hernando Fajardo cha Location: Telemetry/MedSurg (observation) hernan Condition: Fair hernan Problem: new hernan Symptoms: have improved hernan Bed/Room Type: Standard hernan Room Assignment: 224(01/25/21 19:38) eb1 Diagnosis - Dyspnea hernan - COPD/ Chronic obstructive pulmonary disease with (acute) exacerbation hernan - Hypokalemia hernan Forms: - Medication Reconciliation Form hernan - SBAR form hernan Signatures: Dispatcher [employer] EDMadi Stoddard MD MD cha Basinger, Emily, RN RN eb1 Bridget Abdul RN RN ll1 Omkar Oliva RN RN mr2 Corrections: (The following items were deleted from the chart) 19:38 19:09 hernan eb1
[2021-01-25] MEDS ORDERED: IPRATROPIUM BROM 0.5MG/2.5ML ONE (19:19)
[2021-01-25] MEDS ORDERED: FAMOTIDINE 20 MG/2 ML VIAL IV ONE (19:19)
[2021-01-25] MEDS ORDERED: MAGNESIUM SULFATE 1 gm IVPB 1 GM/100 ML BAG IV ONE (19:19)
--- NOTE | 2021-01-25 20:06 | P.HP ---
Certification for Inpatient Patient admitted to: Inpatient With expected LOS: <2 Midnights Patient will require the following post-hospital care: None Practitioner: I am a practitioner with admitting privileges, knowledge of patient current condition, hospital course, and medical plan of care. Services: Services provided to patient in accordance with Admission requirements found in Title 42 Section 412.3 of the Code of Federal Regulations Patient History Date of Service: 01/25/21 Reason for admission: COPD exacerbation History of Present Illness: Mr. Ellington is an 85 yo M with COPD, HTN, HLD, DM, h/o colon and prostate ca who presents with worsening SOB and BARRETT at 3pm today. He says he felt he couldn't catch his breath. He had to use his albuterol inhale 3x today. He says even moving from one hospital bed to another made him feel short of breath. He has had symptoms like this before, but never this bad. Reports dry cough, wheezing. Denies sputum production, flu like symptoms. Na 131, K 3.4, Cl 94, GFR 81. DDimer pending. CXR IMPRESSION: Hyperaerated lungs consistent with COPD. No acute abnormality seen Allergies No Known Allergies Allergy (Verified 09/23/15 12:37) Home Medications: Aspirin [Raji Chewable Aspirin] 81 mg PO DAILY 09/23/15 Metformin ER [Glucophage ER*] 500 mg PO DAILY 09/23/15 Levothyroxine [Synthroid*] 1 tab PO DAILY 12/15/18 Lovastatin 12/15/18 Potassium Chloride 12/15/18 hydroCHLOROthiazide [Hydrochlorothiazide*] 12/15/18 - Past Medical/Surgical History Diabetic: Yes -: Hypertension -: Diabetes -: Prostate cancer -: hypothyroidism -: copd -: hyperlipidemia -: prostate cx -: Hernia repair -: colon sx - Family History Family History: Reviewed- Non-Contributory - Social History Smoking Status: Former smoker Alcohol use: No CD- Drugs: No Caffeine use: Yes Place of Residence: Home Review of Systems 10-point ROS is otherwise unremarkable General: Unremarkable Eyes: Unremarkable ENT: Unremarkable Respiratory: Cough, Shortness of Breath, SOB with Excertion, Wheezing, As per HPI Cardiovascular: Unremarkable Gastrointestinal: Unremarkable Genitourinary: Unremarkable Musculoskeletal: Unremarkable Integumentary: Unremarkable Neurological: Unremarkable Lymphatics: Unremarkable Physical Examination - Physical Exam General: Alert, In no apparent distress HEENT: Atraumatic, PERRLA, Mucous membr. moist/pink, EOMI, Sclerae nonicteric Neck: Supple, 2+ carotid pulse no bruit, No LAD, Without JVD or thyroid abnormality Respiratory: Diminished Cardiovascular: Regular rate/rhythm, Normal S1 S2 Gastrointestinal: Normal bowel sounds, No tenderness Musculoskeletal: No tenderness Integumentary: No rashes Neurological: Normal speech, Normal strength at 5/5 x4 extr, Normal tone, Normal affect Lymphatics: No axilla or inguinal lymphadenopathy - Studies Laboratory Data (last 24 hrs) 01/25/21 17:35: PT 13.2 H, INR 1.15 01/25/21 17:35: WBC 7.10, Hgb 11.2 L, Hct 34.2 L, Plt Count 267 01/25/21 17:35: Sodium 131 L, Potassium 3.4 L, BUN 14, Creatinine 0.89, Glucose 115 H, Magnesium 1.8, Total Bilirubin 0.2, AST 13 L, ALT 15, Alkaline Phosphatase 79 Assessment and Plan - Problems (Diagnosis) (1) COPD exacerbation Current Visit: Yes Status: Acute (2) HLD (hyperlipidemia) Current Visit: Yes Status: Chronic Qualifiers: Hyperlipidemia type: unspecified Qualified Code(s): E78.5 - Hyperlipidemia, unspecified (3) Diabetes Current Visit: No Status: Chronic Qualifiers: Diabetes mellitus type: type 2 Diabetes mellitus prison insulin use: without prison use Diabetes mellitus complication status: without complication Qualified Code(s): E11.9 - Type 2 diabetes mellitus without complications (4) Hypertension Current Visit: No Status: Chronic - Plan pulm consulted, RT consulted continue IV steroids, breathing treatments, O2 as needed, antitussives prn potassium replacement gentle IVF hydration hydralazine PRN for BP spikes sliding scale insulin and accuchecks reconcile and continue home medications DVT ppx Discharge Plan: Home Plan to discharge in: 48 Hours - Advance Directives Does patient have a Living Will: No Does patient have a Durable POA for Healthcare: No - Code Status/Comfort Care Code Status Assessed: Yes (full code ) Critical Care: No Time Spent Managing Pts Care (In Minutes): 70
[2021-01-25] MEDS ORDERED: IPRATROPIUM BROM 0.5MG/2.5ML NEB PRN (22:15)
[2021-01-25] MEDS ORDERED: BENZONATATE 100 MG CAP PO PRN (22:15)
[2021-01-25] MEDS ORDERED: ALBUTEROL 2.5 MG/3 ML NEB SOL NEB PRN (22:15)
[2021-01-25] MEDS ORDERED: ACETAMINOPHEN 500 MG TAB PO PRN (22:15)
[2021-01-25] MEDS: INSULIN -REGULAR HUMAN 50 UNIT/0.5 ML ML SQ SCH (22:15)
[2021-01-25] MEDS ORDERED: HYDRALAZINE HCL 20 MG/ML VIAL IV PRN (22:15)
[2021-01-25] MEDS ORDERED: ONDANSETRON 4 MG/2 ML VIAL IV PRN (22:15)
[2021-01-25 22:51] VITALS: BMI 25.9
[2021-01-25 23:48] LABS: Urine Appearance CLEAR (Clear); Urine Bilirubin NEGATIVE (Negative); Urine Blood TRACE (Negative); Urine Color YELLOW (Yellow); Urine Glucose NEGATIVE (Negative); Urine Protein 1+ (Negative); Urine Specific Gravity <=1.005 (1.005-1.030); Urine Urobilinogen 0.2 mg/dL (0.2-1.0); Urine pH 7.5 (5.0-7.0)
[2021-01-25 23:49] LABS: Urine Microscopic Reflex ORDER UMIC
[2021-01-25 23:56] LABS: Urine Bacteria <20 /HPF (NONE SEEN)
[2021-01-26] MEDS: METHYLPREDNISOLONE 40 MG INJ IV SCH ×2 (04:41→10:25)
[2021-01-26] MEDS: NA CHLORIDE 0.9% 1,000 ML IV SCH ×2 (04:42→11:35)
[2021-01-26 06:03] LABS: Basophils % 0.2 % (0-1.3); Hematocrit 35.4 % (39.6-49.0); Lymphocytes % 22.7 % (15.3-44.8); MPV 7.3 fL (7.6-11.3); RBC Red Blood Cell Count 3.98 M/uL (4.33-5.43)
[2021-01-26 06:35] LABS: Albumin 3.1 g/dL (3.4-5.0); Bilirubin Total 0.2 mg/dL (0.2-1.0); Phosphorus 2.1 mg/dL (2.5-4.9); Potassium 3.2 mmol/L (3.5-5.1); Protein, Total 8.2 g/dL (6.4-8.2); Thyroid Stimulating Hormone 0.673 uIU/mL (0.360-3.740)
[2021-01-26] MEDS: INSULIN -REGULAR HUMAN 50 UNIT/0.5 ML ML SQ SCH ×4 (07:30→21:25)
[2021-01-26] MEDS ORDERED: HOME MED 1 EA UNK (Omeprazole [Omeprazole] 20 MG Capsule.Dr) PO SCH (09:00)
[2021-01-26] MEDS ORDERED: POTASSIUM 25 MEQ EFFERV TAB PO ONE (09:00)
[2021-01-26] MEDS ORDERED: HOME MED 1 EA UNK (Potassium Gluconate [Potassium] 99 MG Tablet) PO SCH (09:00)
[2021-01-26] MEDS: PANTOPRAZOLE 40MG TABLET PO SCH (10:24)
[2021-01-26] MEDS: ENOXAPARIN 40 MG/0.4 ML SQ SCH (10:24)
[2021-01-26] MEDS: CALCIUM CARBONATE 500 MG TAB PO SCH (10:25)
[2021-01-26] MEDS: ASPIRIN 81 MG CHEWABLE TABLET PO SCH (10:25)
--- NOTE | 2021-01-26 10:48 | RAD REPORT ---
EXAM DESCRIPTION: CT - Chest For Pe Angio - 01/26/2021 12:12 am CLINICAL HISTORY: SOB TECHNIQUE: Axial computed tomographic angiography images of the chest with intravenous contrast. S agittal and coronal reformatted images were created and reviewed. This CT exam was performed using one or more of the following dose reduction techniques: automated exposure control, adjustment of t he mA and/or kV according to patient size, and/or use of iterative reconstruction technique. MIP reconstructed images were created and reviewed. COMPARISON: 12/15/2018 FINDINGS: Artifacts: Motion artifact degrades image quality and limits evaluation of segmental and subsegmental vessels. Pulmonary arteries: No central pulmonary arterial filling defects. Aorta: Moderate atherosclerotic disease. No thoracic aortic aneurysm. Lungs: Moderate centrilobular emphysema with an upper lobe predominance. Patchy peripheral groundgl ass opacities and interstitial prominence at the lung bases bilaterally, similar to the prior. Right upper lobe calcified granuloma. Pleural space: Unremarkable. No significant effusion. No pneumothorax. Heart: The heart is mildly to moderately enlarged. Coronary artery calcification. No significant pericardial effusion. No evidence of RV dysfunction. Bones/joints: Multilevel spondylosis. Multiple remote thoracic compression deformities and remote b ilateral rib fractures again demonstrated. No dislocation. Soft tissues: Unremarkable. Lymph nodes: Unremarkable. No enlarged lymph nodes. Liver: Stable 1 cm left hepatic hypodensity which cannot be fully characterized. No follow-up imagi ng is necessary. IMPRESSION: 1. Motion artifact degrades image quality and limits evaluation of subsegmental vessel s. No central pulmonary embolic disease. 2. Moderate centrilobular emphysema. Patchy peripheral groundglass opacities and interstitial promi nence at the lung bases bilaterally, similar to the prior thought in part related to chronic intersti tial changes/fibrosis. Superimposed infiltrate cannot be entirely excluded. 3. Other findings as above. Electronically signed by: Domi Minor MD 01/26/2021 12:05 AM [employer] Due to temporary technical issues with the PACS/Fluency reporting system, reports are being signed by the in house radiologist without review as a courtesy to ensure prompt reporting. The interpreting r adiologist is fully responsible for the content of the report.
[2021-01-26] MEDS: DORZOLAMIDE HCL OPTH SCH ×2 (12:09→21:25)
[2021-01-26] MEDS: [UNRECOGNIZED DRUG - OTHER] OPTH SCH (12:09)
[2021-01-26] MEDS: TIMOLOL OPTH OPTH SCH ×2 (12:09→21:25)
--- NOTE | 2021-01-26 12:49 | P.CNS ---
Date of Consult: 01/26/21 Reason for Consult: COPD exacerbation Chief Complaint: COPD exacerbation History of Present Illness: Patient is 85 years of age with a history of COPD metabolic syndrome admitted with acute onset of shortness of breath he is doing a little better still compla ins of some discomfort in the left side of his chest Allergies No Known Allergies Allergy (Verified 01/25/21 22:21) Home Medications: Aspirin [Raji Chewable Aspirin] 81 mg PO DAILY 09/23/15 Calcium Carbonate [Calcium] 1 tab PO DAILY 01/26/21 Dorzolamide HCl/Pf [Dorzolamide 2% Eye Drop] 1 gtt EACH EYE BID 01/26/21 Hydrochlorthiazide 20 Mg 1 tab PO DAILY 01/26/21 Lovastatin 2 tab PO BEDTIME 01/26/21 Metformin 500 mg PO DAILY 01/26/21 Omeprazole 1 cap PO DAILY 01/26/21 Potassium Gluconate [Potassium] 1 tab PO BID 01/26/21 timoloL maleate [Timolol Maleate] 1 gtt EACH EYE BID 01/26/21 - Past Medical/Surgical History Diabetic: Yes -: Hypertension -: Diabetes -: Prostate cancer -: hypothyroidism -: copd -: hyperlipidemia -: prostate cx -: Hernia repair -: colon sx - Social History Smoking Status: Unknown if ever smoked Alcohol use: No CD- Drugs: No Caffeine use: Yes Place of Residence: Home Review of Systems Respiratory: Cough, Shortness of Breath Cardiovascular: Chest Pain Physical Examination Temp Pulse Resp BP Pulse Ox 97.3 F 98 H 16 140/73 94 01/26/21 12:00 01/26/21 12:00 01/26/21 12:00 01/26/21 12:00 01/26/21 12:00 General: Alert, In no apparent distress HEENT: Atraumatic Neck: Supple Respiratory: Clear to auscultation bilaterally, Normal air movement Cardiovascular: No edema, Regular rate/rhythm Gastrointestinal: Normal bowel sounds, Soft and benign Laboratory Data (last 24 hrs) 01/25/21 17:35: PT 13.2 H, INR 1.15 01/25/21 17:35: WBC 7.10, Hgb 11.2 L, Hct 34.2 L, Plt Count 267 01/25/21 17:35: Sodium 131 L, Potassium 3.4 L, BUN 14, Creatinine 0.89, Glucose 115 H, Magnesium 1.8, Total Bilirubin 0.2, AST 13 L, ALT 15, Alkaline Phosphatase 79 - Problems (1) COPD exacerbation Current Visit: Yes Status: Acute Plan: Patient is 85 years of age admitted with COPD exacerbation he is doing much better there is no evidence of pulmonary embolism COPD changes no evidence of pneumonia patient is hemodynamically stable oxygenation satisfactory avoid hydrochlorothiazide change to another antihypertensive agent losartan plan for discharge
--- NOTE | 2021-01-26 15:53 | P.PN ---
Subjective Date of Service: 01/26/21 Chief Complaint: COPD exacerbation Patient states he is feeling much better today. He is now tolerating room air. Physical Examination - Vital Signs Temperature: 97.3 F Blood Pressure: 140/73 Pulse: 98 Respirations: 16 Pulse Ox (%): 94 - Physical Exam General: Alert, In no apparent distress, Oriented x3 HEENT: Mucous membr. moist/pink Neck: JVD not distended Respiratory: Clear to auscultation bilaterally, Diminished (Bilateral) Cardiovascular: No edema, Regular rate/rhythm, Normal S1 S2 Gastrointestinal: Normal bowel sounds, Soft and benign, Non-distended, No tenderness Musculoskeletal: No swelling Integumentary: No rashes, No erythema Neurological: Normal speech, Normal strength at 5/5 x4 extr - Studies Laboratory Data (last 24 hrs) 01/25/21 17:35: PT 13.2 H, INR 1.15 01/25/21 17:35: WBC 7.10, Hgb 11.2 L, Hct 34.2 L, Plt Count 267 01/25/21 17:35: Sodium 131 L, Potassium 3.4 L, BUN 14, Creatinine 0.89, Glucose 115 H, Magnesium 1.8, Total Bilirubin 0.2, AST 13 L, ALT 15, Alkaline Phosphatase 79 Assessment And Plan - Current Problems (Diagnosis) (1) COPD exacerbation Current Visit: Yes Status: Acute (2) HLD (hyperlipidemia) Current Visit: Yes Status: Chronic Qualifiers: Hyperlipidemia type: unspecified Qualified Code(s): E78.5 - Hyperlipidemia, unspecified (3) Diabetes Current Visit: No Status: Chronic Qualifiers: Diabetes mellitus type: type 2 Diabetes mellitus long-term insulin use: without long-term use Diabetes mellitus complication status: without complication Qualified Code(s): E11.9 - Type 2 diabetes mellitus without complications (4) Hypertension Current Visit: No Status: Chronic - Plan Pulmonary input appreciated. Patient transitioned from IV steroid to oral prednisone. Continue bronchodilators. Assess respiratory status with ambulation. Insulin sliding scale for glucose management. Monitor and optimize electrolytes.
[2021-01-26] MEDS ORDERED: HOME MED 1 EA UNK (Lovastatin [Lovastatin] 40 MG Tablet) PO SCH (21:00)
[2021-01-26] MEDS ORDERED: ATORVASTATIN 20 MG TAB PO SCH (21:00)
[2021-01-26] MEDS: predniSONE 20 MG TAB PO SCH (21:25)
[2021-01-27] MEDS ORDERED: DIPHENHYDRAMINE 25 MG TAB/CAP PO PRN (00:44)
[2021-01-27 05:50] LABS: Absolute Lymphocytes (CBC) 1.4 K/uL (0.7-4.9); Basophils % 0.3 % (0-1.3); Hematocrit 34.6 % (39.6-49.0); MPV 7.5 fL (7.6-11.3); RBC Red Blood Cell Count 3.86 M/uL (4.33-5.43)
[2021-01-27 06:13] LABS: Albumin 2.8 g/dL (3.4-5.0); Bilirubin Total 0.2 mg/dL (0.2-1.0); Protein, Total 7.5 g/dL (6.4-8.2)
[2021-01-27] MEDS: INSULIN -REGULAR HUMAN 50 UNIT/0.5 ML ML SQ SCH ×2 (07:30→11:30)
[2021-01-27] MEDS: CALCIUM CARBONATE 500 MG TAB PO SCH (08:53)
[2021-01-27] MEDS: ENOXAPARIN 40 MG/0.4 ML SQ SCH (08:53)
[2021-01-27] MEDS: PANTOPRAZOLE 40MG TABLET PO SCH (08:54)
[2021-01-27] MEDS: predniSONE 20 MG TAB PO SCH (08:54)
[2021-01-27] MEDS: TIMOLOL OPTH OPTH SCH (08:54)
[2021-01-27] MEDS: [UNRECOGNIZED DRUG - OTHER] OPTH SCH (08:54)
[2021-01-27] MEDS: DORZOLAMIDE HCL OPTH SCH (08:54)
[2021-01-27] MEDS: ASPIRIN 81 MG CHEWABLE TABLET PO SCH (08:54)
[2021-01-27 09:48] VITALS: O2SAT 100
[2021-01-27 10:14] LABS: Blood Morphology Comment NOT SEEN (NOT SEEN); Platelet Estimate ADEQ; White Blood Cell Scan OK (OK)
--- NOTE | 2021-01-27 12:37 | P.DS ---
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 Ellington is an 85 yo M with COPD, HTN, HLD, DM, h/o colon and prostate ca who presents with worsening SOB and BARRETT at 3pm today. He says he felt he couldn't catch his breath. He had to use his albuterol inhale 3x today. He says even moving from one hospital bed to another made him feel short of breath. He has had symptoms like this before, but never this bad. He reported dry cough, wheezing. Denied sputum production, or flu like symptoms. Na 131, K 3.4, Cl 94, GFR 81. Patient given nebulizer treatment in the emergency department with partial improvement. CT chest demonstrated emphysematous changes and increased interstitial opacities and groundglass opacities suggestive of chronic interstitial changes patient hospitalized for further management of COPD exacerbation. Hospital Course: Patient admitted to the medical floor and treated with IV steroid and scheduled bronchodilators. He did not require oxygen and was stable on room air. Patient respiratory condition improved with treatment. He was seen by pulmonary and IV steroids transition to oral prednisone. Patient was monitored for another 24 hours with progressive improvement. He feels he is back to baseline and deemed stable for discharge. Patient is discharged with short course prednisone therapy. He is prescribed nebulizers and inhalers. White cell count trended up with his likely secondary to steroid induced leukocytosis. Will cover with oral Levaquin on discharge. Vital Signs/Physical Exam: Temp Pulse Resp BP Pulse Ox 97.0 F 73 18 141/82 H 97 01/27/21 08:00 01/27/21 08:00 01/27/21 08:00 01/27/21 08:00 01/27/21 08:00 General: In no apparent distress, Oriented x3 HEENT: Mucous membr. moist/pink Neck: JVD not distended Respiratory: Clear to auscultation bilaterally, Normal air movement Cardiovascular: No edema, Regular rate/rhythm, Normal S1 S2 Capillary refill: <2 Seconds Gastrointestinal: Soft and benign, Non-distended Musculoskeletal: No swelling, No tenderness Integumentary: No rashes Neurological: Normal strength at 5/5 x4 extr Laboratory Data at Discharge: WBC 19.80 K/uL (4.3-10.9) H D 01/27/21 05:30 Hgb 11.1 g/dL (13.6-17.9) L 01/27/21 05:30 Hct 34.6 % (39.6-49.0) L 01/27/21 05:30 Plt Count 262 K/uL (152-406) 01/27/21 05:30 PT 13.2 SECONDS (9.5-12.5) H 01/25/21 17:35 INR 1.15 01/25/21 17:35 Sodium 136 mmol/L (136-145) 01/27/21 05:30 Potassium 4.0 mmol/L (3.5-5.1) 01/27/21 05:30 BUN 22 mg/dL (7-18) H 01/27/21 05:30 Creatinine 0.93 mg/dL (0.55-1.3) 01/27/21 05:30 Glucose 138 mg/dL (74-106) H 01/27/21 05:30 Phosphorus 2.1 mg/dL (2.5-4.9) L 01/26/21 05:25 Magnesium 2.0 mg/dL (1.8-2.4) 01/26/21 05:25 Total Bilirubin 0.2 mg/dL (0.2-1.0) 01/27/21 05:30 AST 12 U/L (15-37) L 01/27/21 05:30 ALT 15 U/L (12-78) 01/27/21 05:30 Alkaline Phosphatase 73 U/L (45-117) 01/27/21 05:30 Triglycerides 30 mg/dL (<150) 01/26/21 05:25 Cholesterol 172 mg/dL (<200) 01/26/21 05:25 HDL Cholesterol 54 mg/dL (40-60) 01/26/21 05:25 Cholesterol/HDL Ratio 3.19 01/26/21 05:25 Home Medications: Aspirin [Raji Chewable Aspirin] 81 mg PO DAILY 09/23/15 Calcium Carbonate [Calcium] 1 tab PO DAILY 01/26/21 Dorzolamide HCl/Pf [Dorzolamide 2% Eye Drop] 1 gtt EACH EYE BID 01/26/21 Lovastatin 2 tab PO BEDTIME 01/26/21 Metformin 500 mg PO DAILY 01/26/21 Omeprazole 1 cap PO DAILY 01/26/21 Potassium Gluconate [Potassium] 1 tab PO BID 01/26/21 timoloL maleate [Timolol Maleate] 1 gtt EACH EYE BID 01/26/21 Albuterol Neb [Proventil 0.083% Neb Soln] 2.5 mg NEB Q6HP PRN #120 amp 01/27/21 Benzonatate [Tessalon Perle*] 100 mg PO TID PRN #30 cap 01/27/21 Ipratropium Neb [Atrovent*] 0.5 mg NEB [id number] PRN #120 amp 01/27/21 Nebulizer [Aeroneb Go Nebulizer] 1 each QID #1 each 01/27/21 levoFLOXacin [Levaquin] 750 mg PO DAILY #5 tab 01/27/21 predniSONE [Prednisone*] 20 mg PO BID #10 tab 01/27/21 New Medications: Ipratropium Neb [Atrovent*] 0.5 mg NEB [id number] PRN #120 amp PRN Reason: Shortness Of Breath Albuterol Neb [Proventil 0.083% Neb Soln] 2.5 mg NEB Q6HP PRN #120 amp PRN Reason: Shortness Of Breath Nebulizer [Aeroneb Go Nebulizer] 1 each QID #1 each levoFLOXacin [Levaquin] 750 mg PO DAILY #5 tab predniSONE [Prednisone*] 20 mg PO BID #10 tab Benzonatate [Tessalon Perle*] 100 mg PO TID PRN #30 cap PRN Reason: Cough Diet: ADA Activity: Ad betina Followup: Esteban Huff MD [ACTIVE - CAN ADMIT] - 1-2 Weeks Unknown,U [Primary Care Provider] - 1 Week Time spent managing pt's care (in minutes): 36
[2021-01-27 14:16] VITALS: BP 140/67; TEMP 96.8
== END 2021-01-27 13:14 | disposition home or self-care (01) | DRG 192 ==
LOC: ER 16:57 → ERHOLD 19:26 → 2ND 22:36
PROVIDERS: ADMIT Internal Medicine; ATTEND Internal Medicine
DX: J44.1 Chronic obstructive pulmonary disease with (acute) exacerbation (principal); E78.5 Hyperlipidemia, unspecified; E03.9 Hypothyroidism, unspecified; I10 Essential (primary) hypertension; E87.6 Hypokalemia; E11.9 Type 2 diabetes mellitus without complications; Z85.038 Personal history of other malignant neoplasm of large intestine; Z85.46 Personal history of malignant neoplasm of prostate; Z79.82 Long term (current) use of aspirin; Z79.84 Long term (current) use of oral hypoglycemic drugs; Z79.890 Hormone replacement therapy; Z79.899 Other long term (current) drug therapy; Z79.52 Long term (current) use of systemic steroids; Z87.891 Personal history of nicotine dependence; Z20.822 Contact with and (suspected) exposure to COVID-19
CPT/HCPCS: 36415; 71045; 71275; 80048; 80053; 80061; 80076; 81003; 81015; 82947; 83605; 83735; 83880; 84100; 84132; 84439; 84443; 84484; 85025; 85379; 85610; 87040; 93005; 94760; 96372; 96374; 96375; 99285; J1650; J2920; J2930; J3475; J7030; J7512; Q9967; U0003

== ENCOUNTER 2022-07-17 07:14 | Day surgery (SDC) | payer OTHER ==
[2022-07-17] MEDS ORDERED: propofoL 200 MG/20 ML VIAL IV ONE (07:44)
[2022-07-17] MEDS ORDERED: NA CHLORIDE 0.9% 1,000 ML ONE (07:44)
[2022-07-17] MEDS ORDERED: GLYCOPYRROLATE 0.2 MG/ML SYR ONE (07:45)
[2022-07-17] MEDS ORDERED: LIDOCAINE 1% MPF 30 ML VIAL ONE (07:45)
[2022-07-17 10:40] VITALS: O2SAT 100
[2022-07-17 10:42] VITALS: BP 147/75; TEMP 97.1
== END 2022-07-17 09:56 | disposition home or self-care (01) ==
LOC: OR 07:14
PROVIDERS: ATTEND Internal Medicine Gastroenterology
PROC: 0DBH8ZX Excision of Cecum, Via Natural or Artificial Opening Endoscopic, Diagnostic (ICD-10-PCS; 2022-07-17)
PROC: 0DBK8ZX Excision of Ascending Colon, Via Natural or Artificial Opening Endoscopic, Diagnostic (ICD-10-PCS; principal; 2022-07-17 08:30)
DX: Z12.11 Encounter for screening for malignant neoplasm of colon (principal); Z85.038 Personal history of other malignant neoplasm of large intestine; K63.89 Other specified diseases of intestine; K57.30 Diverticulosis of large intestine without perforation or abscess without bleeding; K64.8 Other hemorrhoids; D12.2 Benign neoplasm of ascending colon; D12.0 Benign neoplasm of cecum
CPT/HCPCS: 45385; 82947; 88305; J2704; J2001; J7030

== ENCOUNTER 2023-10-29 07:49 | Emergency (ER) | payer OTHER ==
[2023-10-29 08:13] LABS: Absolute Lymphocytes (CBC) 1.6 K/uL (0.7-4.9); Absolute Monocytes 0.8 K/uL (0.1-1.3); Absolute Neutrophil 7.4 K/uL (1.8-8.0); Basophils % 0.4 % (0-1.3); Eosinophils % 0.5 % (0-4.4); Hematocrit 37.7 % (39.6-49.0); Hemoglobin 12.7 g/dL (13.6-17.9); Lymphocytes % 15.9 % (15.3-44.8); MCH 30.5 pg (27.0-35.0); MCHC 33.7 g/dL (32.0-36.0); MCV 90.6 fL (80-100); MPV 7.3 fL (7.6-11.3); Monocytes % 8.5 % (3.3-12.3); Neutrophils % 74.7 % (41.7-73.7); Platelets 222 thou/uL (152-406); RBC Red Blood Cell Count 4.16 M/uL (4.33-5.43)
[2023-10-29] MEDS ORDERED: MECLIZINE HCL 12.5 MG TAB ONE (08:27)
[2023-10-29] MEDS ORDERED: NA CHLORIDE 0.9% 500 ML ONE (08:27)
[2023-10-29 08:33] LABS: Anion Gap 6.5 mEq/L (5.0-15.0); Potassium 3.5 mEq/L (3.5-5.1); Troponin High Sensitivity 22.3 pg/mL (<58.9)
--- NOTE | 2023-10-29 08:50 | RAD REPORT ---
EXAM DESCRIPTION: CT - Head C Spine Cap Wo Con - 10/29/2023 8:15 am CLINICAL HISTORY: fall, head/right ribs/abd/left hip COMPARISON: Head Brain Wo Cont dated 08/04/2020; Chest For Pe Angio dated 01/25/2021; Abdomen Pelvis W Contrast dated 01/26/2017 TECHNIQUE: Head and cervical spine CT images were obtained without IV contrast. Chest, abdomen, and pelvis CT images were obtained also without IV contrast. Multiplanar reformats were generated and rev iewed. All CT scans are performed using dose optimization technique as appropriate and may include automated exposure control or mA/KV adjustment according to patient size. FINDINGS: CT HEAD: No intracranial hemorrhage, mass effect, or edema. No evidence of acute territorial infarct. No midli ne shift or abnormal fluid collection. The ventricles are normal in caliber and configuration for age . Stable pattern of periventricular and deep white matter hypodensities, most suggestive of chronic s mall vessel ischemic changes. Basal cisterns are patent. Mastoid aircells and paranasal sinuses are c lear. No acute skull fracture. CT CERVICAL SPINE: No acute cervical spine fracture or subluxation. Vertebral body heights are well maintained. Facet grant ints are normal in alignment. No hyperattenuating canal hematoma. Prevertebral and paraspinous soft t issues are unremarkable. CT CHEST: No pneumothorax, pulmonary contusion or pleural fluid collection. Advanced apical predominant centril obular emphysematous changes. Pleural-based posterior left lower lobe nodule measuring least 9 mm, an d calcified peripheral right upper lobe 5 mm granuloma are stable. No mediastinal hematoma and the ao rta and pulmonary arteries are unremarkable. No chest will mass or abnormal axillary finding. No disp laced rib fracture or other significant bony finding. CT ABDOMEN/ PELVIS: No evidence of traumatic injury to solid abdominal viscera. 11 mm hypoattenuating lesion in the centr al liver superiorly, may represent a small cyst, not well characterized. Appendix is unremarkable. Mi ld distal colonic diverticulosis. Gallbladder and biliary tree are unremarkable. Stable postsurgical changes seen in the left flank. 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 Surgical clips are seen around the colon in the upper abdo men. Numerous bilateral renal cortical cystic lesions, largest is posteriorly exophytic on the left, measuring 8.2 cm in greatest dimension. No bowel injury or significant finding. No free air, free flu id or abnormal fat stranding. No urinary bladder abnormality. Multilevel thoracic and lumbar superior endplate compression deformities. The thoracic spine abnormal ities appear stable. No comparison available for the most pronounced anterior wedge compression defor mity at L3, however it appears to be chronic as well. No other significant osseous finding. IMPRESSION: No acute traumatic findings. Chronic findings as above, including multilevel thoracic and lumbar spine compression deformities. Th e wedge compression deformity at L3 is indeterminate given absence of prior comparison studies, favor ed to be chronic as well. Please correlate clinically for focal tenderness at this level.
--- NOTE | 2023-10-29 08:51 | RAD REPORT ---
EXAM DESCRIPTION: RADChest Single View10/29/2023 8:35 am CLINICAL HISTORY: dizziness COMPARISON: Chest Single View dated 01/25/2021; Chest Single View dated 08/04/2020; Chest Single View dated 12/15/2018; Chest Pa And Lat (2 Views) dated 09/08/2018 TECHNIQUE: Portable AP view of the chest. FINDINGS: The lungs are clear, with stable basilar predominant mild peripheral reticular/fibrotic ch anges No pneumothorax or effusion. The cardiomediastinal contours are unremarkable. IMPRESSION: No acute cardiopulmonary process.
--- NOTE | 2023-10-29 08:52 | RAD REPORT ---
EXAM DESCRIPTION: RAD - Femur Left - 10/29/2023 8:35 am CLINICAL HISTORY: PAIN COMPARISON: No comparisons TECHNIQUE: Left femur, 2 views. FINDINGS: No fracture is identified. There is no dislocation or periosteal reaction noted. No acute or suspicious bony finding. Medial and lateral meniscus mineralization, which may relate to the posi tional arthropathy such as CPPD. IMPRESSION: No acute osseous abnormality of the left femur.
[2023-10-29 09:08] LABS: PT Prothrombin Time 13.6 SECONDS (9.4-12.5); PTT, Activated Partial Thromb 35.2 SECONDS (24.3-36.9); Protime INR 1.22
--- NOTE | 2023-10-29 09:33 | ER ---
Nurse's Notes [facility] Name: Kyaw Ellington Jr Age: 88 yrs Sex: Male : 1935 Arrival Date: 10/29/2023 Time: 07:49 Bed 7 Private MD: Diagnosis: Dizziness and giddiness;Unspecified injury of head, initial encounter;Contusion of left hip Presentation: 10/28 07:54 Chief complaint: EMS states: LEFT HIP AND RIB PAIN 2/2 FALL Y/D. Coronavirus screen: At bp this time, the client does not indicate any symptoms associated with coronavirus-19. Ebola Screen: No symptoms or risks identified at this time. Initial Sepsis Screen: Does the patient meet any 2 criteria? No. Patient's initial sepsis screen is negative. Does the patient have a suspected source of infection? No. Patient's initial sepsis screen is negative. Risk Assessment: Do you want to hurt yourself or someone else? Patient reports no desire to harm self or others. Onset of symptoms is unknown. Care prior to arrival: IV initiated. 20 GA, in the left antecubital area, Glucose check: 134. 07:54 Method Of Arrival: [facility]: [facility] bp 07:54 Acuity: JAME 3 bp Triage Assessment: 07:55 General: Appears in no apparent distress. uncomfortable, Behavior is calm, cooperative, bp appropriate for age. Pain: Complains of pain in left hip. EENT: No deficits noted. Neuro: Reports dizziness. Cardiovascular: No deficits noted. Respiratory: No deficits noted. GI: No signs and/or symptoms were reported involving the gastrointestinal system. : No signs and/or symptoms were reported regarding the genitourinary system. Derm: No deficits noted. Musculoskeletal: No deficits noted. Historical: - Allergies: 07:55 No Known Allergies; bp - PMHx: 07:55 COLON CA; Hyperlipidemia; Diabetes - NIDDM; COPD; Hypertension; Hypothyroidism; bp PROSTATE CA; - Immunization history:: Adult Immunizations up to date. - Infectious Disease History:: Denies. - Social history:: Smoking status: Patient denies any tobacco usage or history of. - Family history:: not pertinent. - Hospitalizations: : No recent hospitalization is reported. Screenin:56 [facility] [place] ED Fall Risk Assessment (Adult) History of falling in the last 3 months, bp including since admission Yes- physiologic fall (2 pts) Confusion or Disorientation No (0 pts) Intoxicated or Sedated No (0 pts) Impaired Gait No (0 pts) Mobility Assist Device Used No (0 pt) Altered Elimination No (0 pt) Score/Fall Risk Level 0 - 2 = Low Risk Oriented to surroundings, Maintained a safe environment. Abuse screen: Denies threats or abuse. Denies injuries from another. Nutritional screening: No deficits noted. Tuberculosis screening: No symptoms or risk factors identified. Assessment: 07:56 General: SEE TRIAGE NOTE. bp Vital Signs: 07:54 BP 148 / 72; Pulse 85; Resp 16; Temp 98; Pulse Ox 96% ; bp 08:41 BP 140 / 69; Pulse 81; Resp 18; Pulse Ox 97% on R/A; mb9 10:21 BP 164 / 82; Pulse 81; Resp 15; Temp 97.9; Pulse Ox 98% ; bp ED Course: 07:54 Patient arrived in ED. bp 07:55 Triage completed. bp 07:55 Arm band placed on. bp 07:56 Patient has correct armband on for positive identification. bp 07:56 Maintain EMS IV. Dressing intact. Good blood return noted. Site clean \T\ dry. Gauge \T\ bp site: 20 LAC. Flushed with 10 mL NS. 07:59 López Jack MD is Attending Physician. rn 08:00 Aidan Medrano, LUC is Primary Nurse. bp 08:08 Bed in low position. Call light in reach. Side rails up X 1. Provided Education on: mariella press call light if needing anything. Client placed on continuous cardiac and pulse oximetry monitoring. NIBP monitoring applied. clinical trials specialist on. 08:08 Initial lab(s) drawn, by me, sent to lab. EKG done, by ED staff, reviewed by López Jack MD. 08:08 Basic Metabolic Panel Sent. mb9 08:08 CBC with Diff Sent. mb9 08:08 Protime (+inr) Sent. mb9 08:08 Troponin High Sensitivity Sent. mb9 08:17 CT Traumagram (Head C Spine CAP wo con) In Process Unspecified. EDMS 08:37 Chest Single View XRAY In Process Unspecified. EDMS 08:37 XRAY Femur LEFT In Process Unspecified. EDMS 10:22 No provider procedures requiring assistance completed. IV discontinued, intact, bp bleeding controlled, No redness/swelling at site. Pressure dressing applied. Administered Medications: 08:30 Drug: Meclizine PO 50 mg PO once Route: PO; bp 10:23 Follow up: Response: No adverse reaction bp 08:31 Drug: NS 0.9% IV 500 ml IV at bolus once Route: IV; Rate: bolus; Site: left antecubital;bp 10:23 Follow up: IV Status: Completed infusion; IV Intake: 500ml bp Medication: 07:56 VIS not applicable for this client. bp Intake: 10:23 IV: 500ml; Total: 500ml. bp Outcome: 09:33 Discharge ordered by . rn 10:22 Discharged to home via wheelchair, with family, bp 10:22 Condition: stable 10:22 Discharge instructions given to patient, family, Instructed on discharge instructions, follow up and referral plans. medication usage, Demonstrated understanding of instructions, follow-up care, medications, Prescriptions given X 1, 10:23 Patient left the ED. bp Signatures: Dispatcher [employer] EDMS López Jack MD MD rn Peltier, Brian RN RN Leidy Dejesus RN RN mb9
--- NOTE | 2023-10-29 09:33 | EDPHYS ---
Physician Documentation [facility] Name: Kyaw Ellington Jr Age: 88 yrs Sex: Male : 1935 Arrival Date: 10/29/2023 Time: 07:49 Bed 7 Private MD: ED Physician López Jack HPI: 10/28 08:05 This 88 yrs old Male presents to ER via EMS with complaints of Hip Pain, dizziness. rn 08:05 The patient or guardian reports an injury, pain. The complaints affect the left hip. rn 08:06 Onset: The symptoms/episode began/occurred yesterday. Modifying factors: The symptoms rn are alleviated by nothing, the symptoms are aggravated by any movement. Severity of symptoms: At their worst the symptoms were moderate, in the emergency department the symptoms are unchanged. The patient has not experienced similar symptoms in the past. The patient has not recently seen a physician. Patient reports dizzy spells, once or twice a year, began feeling dizzy again yesterday, worse with head movement and change in position. Fell to ground striking head, right chest, left hip. Patient reports in bed since yesterday due to pain and cannot ambulate on his own since the fall. Denies any other focal neurological deficits. No change in vision. No change in speech. Dizziness is intermittent.. Historical: - Allergies: 07:55 No Known Allergies; bp - PMHx: 07:55 COLON CA; Hyperlipidemia; Diabetes - NIDDM; COPD; Hypertension; Hypothyroidism; bp PROSTATE CA; - Immunization history:: Adult Immunizations up to date. - Infectious Disease History:: Denies. - Social history:: Smoking status: Patient denies any tobacco usage or history of. - Family history:: not pertinent. - Hospitalizations: : No recent hospitalization is reported. ROS: 08:06 Constitutional: Negative for fever, chills, and weight loss, Neck: Negative for injury, rn pain, and swelling, Cardiovascular: Negative for chest pain, palpitations, and edema, Respiratory: Negative for shortness of breath, cough, wheezing, and pleuritic chest pain, Abdomen/GI: Negative for abdominal pain, nausea, vomiting, diarrhea, and constipation, Back: Negative for injury and pain, : Negative for injury, bleeding, discharge, and swelling, MS/Extremity: Positive for left hip and thigh pain Skin: Negative for injury, rash, and discoloration, Neuro: Positive for headache, negative for focal weakness or numbness Exam: 08:06 Constitutional: This is a well developed, well nourished patient who is awake, alert, rn and in no acute distress. Head/Face: Normocephalic, atraumatic. Cardiovascular: Regular rate and rhythm. No pulse deficits. Respiratory: No increased work of breathing, no retractions or nasal flaring. Abdomen/GI: Soft, mild midepigastric tenderness. MS/ Extremity: Pulses equal, no cyanosis. Mild painful range of motion left hip and left thigh without swelling or gross deformity. Neuro: Awake and alert, GCS 15, oriented to person, place, time, and situation. Cranial nerves II-XII grossly intact. Motor strength 5/5 in all extremities. Sensory grossly intact. 08:10 ECG was reviewed by the Attending Physician. rn Vital Signs: 07:54 BP 148 / 72; Pulse 85; Resp 16; Temp 98; Pulse Ox 96% ; bp 08:41 BP 140 / 69; Pulse 81; Resp 18; Pulse Ox 97% on R/A; mb9 10:21 BP 164 / 82; Pulse 81; Resp 15; Temp 97.9; Pulse Ox 98% ; bp MDM: 07:59 Patient medically screened. rn 09:31 Differential diagnosis: hip fracture, intertrochanteric fracture, femoral neck rn fracture, femoral shaft fracture, bursitis. Data reviewed: vital signs, nurses notes, lab test result(s), EKG, radiologic studies, CT scan, plain films, and as a result, I will discharge patient. Counseling: I had a detailed discussion with the patient and/or guardian regarding the historical points, exam findings, and any diagnostic results supporting the discharge/admit diagnosis, lab results, radiology results, the need for outpatient follow up, to return to the emergency department if symptoms worsen or persist or if there are any questions or concerns that arise at home. Special discussion: Based on the patient's history, exam and DX evaluation, there is no indication for emergent intervention or inpatient TX. It is understood by the patient/guardian that if the SXs persist or worsen they need to return immediately for re-evaluation. I discussed with the patient/guardian in detail that at this point there is no indication for admission to the hospital. It is understood, however, that if the symptoms persist or worsen the patient needs to return immediately for re-evaluation. ED course: No acute traumatic finding. 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 Patient feels better after meclizine. CT head no acute findings. Normal neurological exam otherwise. Nothing to indicate acute stroke. Will discharge home with meclizine and return precautions.. 09:31 Independent interpretation of the following test(s) in the Emergency Department X-Ray: rn My interpretation is X-ray left femur images negative for acute fracture or dislocation per my interpretation. 10/28 08:00 Order name: Basic Metabolic Panel; Complete Time: 08:55 rn 10/28 08:00 Order name: CBC with Diff; Complete Time: 08:55 rn 10/28 08:00 Order name: Protime (+inr); Complete Time: 09:14 rn 10/28 08:00 Order name: Ptt, Activated; Complete Time: 09:14 rn 10/28 08:00 Order name: Troponin High Sensitivity; Complete Time: 08:55 rn 10/28 08:00 Order name: CT Traumagram (Head C Spine CAP wo con); Complete Time: 08:55 rn 10/28 08:00 Order name: Chest Single View XRAY; Complete Time: 08:55 rn 10/28 08:06 Order name: XRAY Femur LEFT; Complete Time: 08:55 rn 10/28 08:00 Order name: EKG; Complete Time: 08:00 rn 10/28 08:00 Order name: Cardiac monitoring; Complete Time: 08:08 rn 10/28 08:00 Order name: EKG - Nurse/Tech; Complete Time: 08:08 rn 10/28 08:00 Order name: IV Saline Lock; Complete Time: 08:08 rn 10/28 08:00 Order name: Labs collected and sent; Complete Time: 08:08 rn 10/28 08:00 Order name: O2 Per Protocol; Complete Time: 08:08 rn 10/28 08:00 Order name: O2 Sat Monitoring; Complete Time: 08:08 rn EC:10 Rate is 79 beats/min. Rhythm is regular. QRS [place] is Normal. MD interval is normal. QRS rn interval is normal. QT interval is normal. No Q waves. T waves are Normal. No ST changes noted. Clinical impression: NSR w/ Non-specific ST/T Changes. Interpreted by me. Reviewed by me. Administered Medications: 08:30 Drug: Meclizine PO 50 mg PO once Route: PO; bp 10:23 Follow up: Response: No adverse reaction bp 08:31 Drug: NS 0.9% IV 500 ml IV at bolus once Route: IV; Rate: bolus; Site: left antecubital;bp 10:23 Follow up: IV Status: Completed infusion; IV Intake: 500ml bp Disposition Summary: 10/29/23 09:33 Discharge Ordered Notes: Location: Home rn Problem: new rn Symptoms: have improved rn Condition: Stable rn Diagnosis - Dizziness and giddiness rn - Unspecified injury of head, initial encounter rn - Contusion of left hip rn Followup: rn - With: Private Physician - When: As needed - Reason: Recheck today's complaints, Re-evaluation by your physician Discharge Instructions: - Discharge Summary Sheet rn - Dizziness rn - Head Injury, Adult rn - Fall Prevention in the Home, Adult rn - Vertigo rn Forms: - Medication Reconciliation Form rn - Antibiotic rn behavioral health - Prescription Opioid Use rn - Patient Portal Instructions rn - Leadership Thank You Letter rn Prescriptions: - Meclizine 25 mg Oral Tablet - take 1 tablet ORAL route every 8 hours As needed; 30 tablet; Refills: 0, rn Product Selection Permitted Signatures: Dispatcher [employer] EDLópez Verde MD MD rn Peltier, Brian RN RN bp Corrections: (The following items were deleted from the chart) 08:00 08:00 Head C Spine Cap Wo Con+CT.RAD.BRZ ordered. EDMS EDMS 08: 08:00 BASIC METABOLIC PANEL+C.LAB.BRZ ordered. EDMS EDMS 08:01 08:00 CBC+H.LAB.BRZ ordered. EDMS EDMS 08:01 08:00 PROTIME (+INR)+COAG.LAB.BRZ ordered. EDMS EDMS 08:01 08:00 PTT, ACTIVATED+COAG.LAB.BRZ ordered. EDMS EDMS 08: 08:00 Troponin High Sensitivity+C.LAB.BRZ ordered. EDMS EDMS 08: 08:00 Urinalysis+U.LAB.BRZ ordered. EDMS EDMS 08:06 08:06 Femur Left+RAD.RAD.BRZ ordered. EDMS EDMS 09:33 09:33 Contusion of left lower leg rn rn
[2023-10-29 10:30] VITALS: BP 164/82; TEMP 97.9; O2SAT 98
--- NOTE | 2023-10-29 12:34 | EKG ---
Test Date: 2023-10-29 Test Time: 08:06:44 Shiftman: BP MEASUREMENT RESULTS: Intervals: Rate: 79 GA: 162 QRSD: 94 QT: 398 QTc: 456 [place]: P: 41 GA: 162 QRS: -6 T: 13 INTERPRETIVE STATEMENTS: Normal sinus rhythm Nonspecific ST and T wave abnormality Abnormal ECG Compared to ECG 01/25/2021 17:22:33 ST (T wave) deviation now present Ventricular premature complex(es) no longer present Left ventricular hypertrophy no longer present Myocardial infarct finding no longer present Electronically Signed On 10-29-23 12:33:22 CDT by Kenneth Rosales
== END 2023-10-29 10:23 | disposition home or self-care (01) ==
LOC: ER 07:49
DX: R42 Dizziness and giddiness (principal); S09.90XA Unspecified injury of head, initial encounter; S70.02XA Contusion of left hip, initial encounter; W18.30XA Fall on same level, unspecified, initial encounter; I10 Essential (primary) hypertension; Z85.038 Personal history of other malignant neoplasm of large intestine; Z85.46 Personal history of malignant neoplasm of prostate
CPT/HCPCS: 96361; 93005; 85025; 80048; 36415; 85610; 85730; 84484; 70450; 71250; 72125; 71045; 73552; 96360; 99285; J8597; J7040

== ENCOUNTER 2024-02-04 19:35 | Emergency (ER) | payer OTHER ==
[2024-02-04 21:34] LABS: Absolute Basophils 0.1 K/uL (0-0.5); Absolute Lymphocytes (CBC) 1.6 K/uL (0.7-4.9); Absolute Monocytes 0.9 K/uL (0.1-1.3); Absolute Neutrophil 12.1 K/uL (1.8-8.0); Basophils % 0.4 % (0-1.3); Eosinophils % 0.3 % (0-4.4); Hematocrit 34.2 % (39.6-49.0); Lymphocytes % 11.1 % (15.3-44.8); MCH 29.1 pg (27.0-35.0); MCV 90.8 fL (80-100); Monocytes % 5.9 % (3.3-12.3); Neutrophils % 82.3 % (41.7-73.7); Platelets 361 thou/uL (152-406); RBC Red Blood Cell Count 3.77 M/uL (4.33-5.43); Red Cell Distribution Width 14.9 % (12.1-15.2)
[2024-02-04] MEDS ORDERED: HYDROCORTISONE SUC 100 MG INJ ONE (21:39)
--- NOTE | 2024-02-04 21:39 | RAD REPORT ---
EXAM: CT brain without contrast HISTORY: DIZZINESS COMPARISON: 08/04/2020 TECHNIQUE: Multiple contiguous axial images were obtained and a CT of the brain without contrast. Sag ittal and coronal reformats were performed. One or more of the following dose reduction techniques were used: Automated exposure control, adjust ment of the mA and/or kV according to patient size, and/or iterative reconstruction. FINDINGS: No evidence of hydrocephalus, intracranial hemorrhage, or extra-axial fluid collection. Moderate brain atrophy with moderate periventricular and deep white matter chronic microvascular isc hemic changes present. No evidence of midline shift or areas of brain edema. The calvarium is intact. The visualized paranasal sinuses and mastoid air cells are essentially clear . IMPRESSION: No evidence of acute intracranial abnormality.
[2024-02-04 21:42] LABS: PT Prothrombin Time 14.3 SECONDS (9.4-12.5); PTT, Activated Partial Thromb 39.1 SECONDS (24.3-36.9); Protime INR 1.29
--- NOTE | 2024-02-04 21:45 | RAD REPORT ---
EXAM: CT CHEST, ABDOMEN AND PELVIS WITHOUT CONTRAST CLINICAL INDICATION: Gen weakness TECHNIQUE: CT chest, abdomen and pelvis was performed without contrast, as per department protocol. A xial, sagittal and coronal reconstructions were obtained. One or more of the following dose reduction techniques were used: Automated exposure control, adjustment of the mA and/or kV according to patient size, and/or iterative reconstruction. Unless otherwise specified, incidental findings do not require dedicated imaging follow-up. Examination is limited by the lack of intravenous contrast material. COMPARISON: No prior exam. FINDINGS: LUNGS: No evidence of airspace or interstitial process. No nodules. Moderate emphysema. PLEURA: No pleural effusion. No pneumothorax. MEDIASTINUM AND LYMPH NODES: No mediastinal mass or fluid collection. Normal size mediastinal, hilar, and axillary lymph nodes. OSSEOUS STRUCTURES AND CHEST WALL: Intact. LIVER: Normal in size and contour. No focal lesion or biliary dilatation. Grossly unremarkable gallbl adder. PANCREAS: No mass, ductal dilation, or liz-pancreatic fluid. SPLEEN: Normal size. No focal lesion. ADRENALS: Normal; no mass. KIDNEYS: Multiple bilateral renal cysts, largest posteriorly on the left measuring 8 cm. No hydroneph rosis. URINARY BLADDER: Normal contour. GASTROINTESTINAL TRACT: Postsurgical changes are present in numerous clips anterior midline abdomen. There is marked distention of the colon which is up to 10 cm. Significant stool retention is present. Mild sigmoid diverticulosis coli without diverticulitis. APPENDIX: Appendix not visualized, but no inflammatory changes in region of appendix. LYMPH NODES: No lymphadenopathy. MUSCULOSKELETAL: Diffuse osteopenia with multiple wedge deformities present involving the spinal colu mn, most significant at L3. 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 IMPRESSION: Postsurgical changes anterior midline intra-abdominal region. There is mild edema in this fat in this region. There is significant distention of the colon measuring up to 10 cm with advanced fecal retention. Moderate COPD.
[2024-02-04 22:11] LABS: Albumin 3.4 g/dL (3.4-5.0); Albumin/Globulin Ratio 0.7 (1.1-1.8); Anion Gap 11.9 mEq/L (5.0-15.0); Bilirubin Total 0.5 mg/dL (0.2-1.0); Globulin 4.9 g/dL (2.3-3.5); Potassium 3.9 mEq/L (3.5-5.1); Protein, Total 8.3 g/dL (6.4-8.2); Troponin High Sensitivity 12.5 pg/mL (<58.9)
[2024-02-04 22:19] LABS: Thyroid Stimulating Hormone 3.96 uIU/mL (0.358-3.740)
[2024-02-04 22:24] LABS: SARS-CoV-2 Antigen CONTROL BLUE LINE VIS/BG OK; SARS-CoV-2 Antigen Rapid Res Negative (Negative)
[2024-02-04 22:39] LABS: Specific Gravity 1.013 (1.005-1.030); Sqamous Epithelial None Seen /HPF (None Seen); Urine Bacteria None Seen /HPF (<20); Urine Bilirubin NEGATIVE (Negative); Urine Blood Negative (Negative); Urine Clarity Clear (Clear); Urine Color Yellow (Yellow); Urine Culture Reflex Order NOT NEEDED; Urine Glucose NEGATIVE (Negative); Urine Ketones NEGATIVE (Negative); Urine Microscopic Reflex YN ORDER UMIC; Urine Mucus Slight /HPF (None Seen); Urine Nitrite NEGATIVE (Negative); Urine Protein TRACE (Negative); Urine RBC <5 /HPF (None Seen); Urine Urobilinogen Normal (Normal); Urine WBC <5 /HPF (<5)
[2024-02-05] MEDS ORDERED: CEFEPIME 1 GM/VIAL ONE
[2024-02-05] MEDS ORDERED: VANCOMYCIN 1 GM/VIAL ONE
[2024-02-05] MEDS ORDERED: NA CHLORIDE 0.9% 100 ML ONE
[2024-02-05] MEDS ORDERED: NA CHLORIDE 0.9% 250 ML ONE
--- NOTE | 2024-02-05 00:33 | EDPHYS ---
Physician Documentation [facility] Name: Kyaw Ellington Jr Age: 88 yrs Sex: Male : 1935 Arrival Date: 02/04/2024 Time: 19:35 Bed 18 Private MD: ED Physician Delvin Ponce HPI: 02/03 20:09 This 88 yrs old Male presents to ER via EMS with complaints of General sp4 Weakness. 02/04 00:27 88-year-old male presents with acute generalized weakness. Patient has near syncopal sp4 episode and almost fell down in the bathroom. Patient has past medical history of COPD, hyperlipidemia, diabetes, hypertension, history of colon cancer in 2006, history of prostate cancer in 2004, patient's medications include aspirin 81 daily, calcium carbonate daily, dorzolamide daily, lovastatin daily, metformin daily, omeprazole daily, potassium gluconate twice daily, timolol daily, albuterol as needed, benzonatate as needed, ipratropium as needed,. Historical: - Allergies: 02/03 20:09 No Known Allergies; kj2 - Home Meds: 20:09 aspirin 81 mg Oral chew 1 tab once daily [Active]; kj2 - PMHx: 20:09 COLON CA; COPD; Diabetes - NIDDM; Hyperlipidemia; Hypertension; Hypothyroidism; kj2 PROSTATE CA; - Immunization history:: Adult Immunizations unknown. - Infectious Disease History:: Denies. - Family history:: not pertinent. - Social history:: Smoking status: Patient denies any tobacco usage or history of. ROS: 02/04 00:29 Constitutional: Negative for fever, chills, and weight loss, positive for generalized sp4 weakness positive for near syncope All other systems are negative, Exam: 00:29 Constitutional: This is a well developed, well nourished frail elderly male, pale sp4 appearing, generalized weakness without focal deficits Head/Face: Normocephalic, atraumatic. Eyes: Pupils equal round and reactive to light, extra-ocular motions intact. Lids and lashes normal. Conjunctiva and sclera are not injected. Cornea within normal limits. Periorbital areas with no swelling, redness, or edema. ENT: Nares patent. No nasal discharge, no septal abnormalities noted. Tympanic membranes are normal and external auditory canals are clear. Oropharynx with no redness, swelling, or masses, exudates, or evidence of obstruction, uvula midline. Mucous membranes moist. Neck: Trachea midline, no thyromegaly or masses palpated, and no cervical lymphadenopathy. Supple, full range of motion without nuchal rigidity, or vertebral point tenderness. Chest/axilla: Normal chest wall appearance and motion. Nontender with no deformity. No lesions are appreciated. Cardiovascular: Regular rate and rhythm with a normal S1 and S2. No gallops, murmurs, or rubs. Normal PMI, no JVD. No pulse deficits. Respiratory: Lungs have equal breath sounds bilaterally, clear to auscultation and percussion. No rales, rhonchi or wheezes noted. No increased work of breathing, no retractions or nasal flaring. Abdomen/GI: Soft, with normal bowel sounds. No distension or tympany. No guarding or rebound. No evidence of tenderness throughout. Back: No spinal tenderness. No costovertebral tenderness. Skin: Warm, dry with normal turgor. Normal color with no rashes, no lesions, and no evidence of cellulitis. MS/ Extremity: Pulses equal, no cyanosis. Neurovascular intact. Full, normal range of motion. Neuro: Awake and alert, GCS 15, oriented to person, place, time, and situation. Cranial nerves II-XII grossly intact. Motor strength 5/5 in all extremities. Sensory grossly intact. Psych: Awake, alert, with orientation to person, place and time. Behavior, mood, and affect are within normal limits 00:30 ECG was reviewed by the Attending Physician. EKG at 2349 normal sinus rhythm rate 82, sp4 no ST elevation or depression normal EKG. Vital Signs: 02/03 20:05 BP 99 / 59; Pulse 78; Temp 98.1; Pulse Ox 96% ; Weight 77.11 kg; Height 5 ft. 11 in. ; kj2 21:30 BP 124 / 66; Pulse 78; Resp 20; Pulse Ox 98% on R/A; kj2 22:30 BP 129 / 65; Pulse 81; Resp 18; Pulse Ox 99% on R/A; kj2 23:29 BP 133 / 68; Pulse 81; Resp 18; Pulse Ox 97% on R/A; kj2 02/04 00:50 BP 141 / 73; Pulse 70; Resp 18; Pulse Ox 98% ; kj2 01:54 BP 125 / 67; Pulse 87; Resp 18; Pulse Ox 100% on R/A; kj2 03:07 BP 144 / 75; Pulse 88; Resp 18; Temp 98; Pulse Ox 100% on R/A; kj2 02/03 20:05 Body Mass Index 23.71 (77.11 kg, 180.34 cm) kj2 NIH Stroke Scale Scores: 00:29 NIHSS Score: 0 sp4 Olinda Coma Score: 00:29 Eye Response: spontaneous(4). Motor Response: obeys commands(6). Verbal Response: sp4 oriented(5). Total: 15. MDM: 02/03 20:23 Medical Screening Exam initiated sp4 23:50 ED course: EXAM: CT CHEST, ABDOMEN AND PELVIS WITHOUT CONTRAST CLINICAL INDICATION: Gen sp4 weakness TECHNIQUE: CT chest, abdomen and pelvis was performed without contrast, as per department protocol. Axial, sagittal and coronal reconstructions were obtained. One or more of the following dose reduction techniques were used: Automated exposure control, adjustment of the mA and/or kV according to patient size, and/or iterative reconstruction. Unless otherwise specified, incidental findings do not require dedicated imaging follow-up. Examination is limited by the lack of intravenous contrast material. COMPARISON: No prior exam. FINDINGS: LUNGS: No evidence of airspace or interstitial process. No nodules. Moderate emphysema. PLEURA: No pleural effusion. No pneumothorax. MEDIASTINUM AND LYMPH NODES: No mediastinal mass or fluid collection. Normal size mediastinal, hilar, and axillary lymph nodes. OSSEOUS STRUCTURES AND CHEST WALL: Intact. LIVER: Normal in size and contour. No focal lesion or biliary dilatation. Grossly unremarkable gallbladder. PANCREAS: No mass, ductal dilation, or liz-pancreatic fluid. SPLEEN: Normal size. No focal lesion. ADRENALS: Normal; no mass. KIDNEYS: Multiple bilateral renal cysts, largest posteriorly on the left measuring 8 cm. No hydronephrosis. URINARYBLADDER: Normal contour. GASTROINTESTINAL TRACT: Postsurgical changes are present in numerous clips anterior midline abdomen. There is marked distention of the colon which is up to 10 cm. Significant stool retention is present. Mild sigmoid diverticulosis coli without diverticulitis. APPENDIX: Appendix not visualized, but no inflammatory changes in region of appendix. LYMPH NODES: No lymphadenopathy. MUSCULOSKELETAL: Diffuse osteopenia with multiple wedge deformities present involving the spinal column, most significant at L3. 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 IMPRESSION: Postsurgical changes anterior midline intra-abdominal region. There is mild edema in this fat in this region. There is significant distention of the colon measuring up to 10 cm with advanced fecal retention. Moderate COPD. . 02/04 00:01 ED course: EXAM: CT brain without contrast HISTORY: DIZZINESS COMPARISON: 08/04/2020 [facility] TECHNIQUE: Multiple contiguous axial images were obtained and a CT of the brain without contrast. Sagittal and coronal reformats were performed. One or more of the following dose reduction techniques were used: Automated exposure control, adjustment of the mA and/or kV according to patient size, and/or iterative reconstruction. FINDINGS: No evidence of hydrocephalus, intracranial hemorrhage, or extra-axial fluid collection. Moderate brain atrophy with moderate periventricular and deep white matter chronic microvascular ischemic changes present. No evidence of midline shift or areas of brain edema. The calvarium is intact. The visualized paranasal sinuses and mastoid air cells are essentially clear. IMPRESSION: No evidence of acute intracranial abnormality. . 00:31 Differential Diagnosis altered mental status, sepsis, flu, Acute metabolic [facility] encephalopathy. Data reviewed: vital signs, nurses notes, EMS record, lab test result(s), EKG, radiologic studies, CT scan. Consideration of Admission/Observation Patient was admitted/placed on observation. Escalation of care including admission/observation considered. Management of patient was discussed with the following: Hospitalist: Hospitalist at [facility]. ED course: Patient has significant hyponatremia sodium 125. Will initiate IV saline infusion. Will request transfer to [facility] for ICU management.. 00:33 ED course: Sepsis reevaluation complete. Patient has history of congestive heart [facility] failure 30 mL/kg bolus is not indicated. Fluid bolus not indicated secondary to history of heart failure.. 03:41 ED course: Patient was actually transferred to [facility]. No ICU beds available at [address] Patient's hyponatremia requires management in the ICU. 02/03 20:21 Order name: Blood Culture Adult (2) [facility] 02/03 20:21 Order name: CBC with Diff; Complete Time: 23:48 [facility] 02/03 20:21 Order name: CMP; Complete Time: 23:48 sp4 02/03 20:21 Order name: Lactate w/ 2H reflex if indic.; Complete Time: 23:48 sp4 02/03 20:21 Order name: Protime (+inr); Complete Time: 23:48 sp4 02/03 20:21 Order name: Ptt, Activated; Complete Time: 23:48 sp4 02/03 20:21 Order name: Urinalysis w/ reflexes; Complete Time: 23:48 sp4 02/03 20:21 Order name: TSH; Complete Time: 23:48 sp4 02/03 20:21 Order name: T4 Free; Complete Time: 23:48 sp4 02/03 20:22 Order name: Troponin High Sensitivity; Complete Time: 23:48 sp4 02/03 20:22 Order name: BNP; Complete Time: 23:48 sp4 02/03 20:22 Order name: SARS RAPID; Complete Time: 23:48 sp4 02/03 20:22 Order name: Influenza Screen (a \T\ B); Complete Time: 23:48 4 02/04 01:09 Order name: Urine Osmolality [facility] 02/04 01:10 Order name: Osmolality, Serum [facility] 02/04 01:10 Order name: Urine Sodium Random 4 02/04 01:11 Order name: Urine Creatinine [facility] 02/03 20:21 Order name: CT Head Brain wo Cont; Complete Time: 23:48 sp4 02/03 20:21 Order name: CT Chest Abdomen Pelvis W/O Contrast; Complete Time: 23:48 4 02/03 20:21 Order name: EKG; Complete Time: 20:22 sp 02/03 20:21 Order name: Accucheck; Complete Time: 01:59 sp4 02/03 20:21 Order name: Cardiac monitoring; Complete Time: 23:28 sp4 02/03 20:21 Order name: Cath; Complete Time: :58 sp4 02/03 20:21 Order name: EKG - Nurse/Tech; Complete Time: :58 sp4 02/03 20:21 Order name: IV Saline Lock - Large Bore; Complete Time: 01:58 sp4 02/03 20:21 Order name: Labs collected and sent; Complete Time: 23:28 sp4 02/03 20:21 Order name: O2 Per Protocol; Complete Time: 01:58 sp4 02/03 20:21 Order name: O2 Sat Monitoring; Complete Time: sp4 02/03 20:21 Order name: Vital Signs; Complete Time: sp4 EC:30 Rate is 82 beats/min. Rhythm is regular, Normal Sinus Rhythm. QRS [place] is Normal. [place] sp4 interval is normal. QRS interval is normal. QT interval is normal. No Q waves. T waves are Normal. No ST changes noted. Clinical impression: Normal ECG. Interpreted by me. Reviewed by me. Administered Medications: 02/03 21:58 Drug: Solu-CORTEF IVP 100 mg IVP once Route: IVP; Site: right antecubital; kj2 23:27 Follow up: Response: No adverse reaction kj2 02/04 00:02 Drug: Cefepime IVPB 1 grams IVPB at 200 ml/hr once over 30 mins; (mix in NS 100 mL) kj2 Route: IVPB; Rate: 200 ml/hr; Infused Over: 30 mins; Site: right antecubital; 00:32 Follow up: IV Status: Completed infusion; IV Intake: 100ml kj2 00:49 Follow up: Response: No adverse reaction kj2 00:48 Drug: vancoMYCIN IVPB 1 grams IVPB once over 2 hrs Route: IVPB; Infused Over: 2 hrs; kj2 Site: right antecubital; 02:45 Follow up: IV Status: Completed infusion; IV Intake: 250ml kj2 01:43 Drug: NS 0.9% IV 1000 ml IV at 100 ml/hr Per protocol; to be given as a bolus over 60 kj2 minutes Route: IV; Rate: 100 ml/hr; Site: right antecubital; 03:10 Follow up: IV Status: Infusion continued upon transfer kj2 Disposition Summary: 02/05/24 00:33 Transfer Ordered Notes: Transfer Location: [facility] sp4 Reason: Higher level of care sp4 Condition: Stable sp4 Problem: new sp4 Symptoms: have improved sp4 Accepting Physician: [facility] hospitalist(02/05/24 03:23) kj2 Diagnosis - Acute hyponatremia, generalized weakness, sepsis without septic shock sp4 Forms: - Medication Reconciliation Form sp4 - SBAR form sp4 Critical care time excluding procedures: 00:32 Critical care time: Bedside Care: 36 minutes, Consultation: 12 minutes, Family sp4 Intervention: 12 minutes. Total time: 60 minutes NIH Stroke Scale - NIH Stroke Score Date: 02/05/2024 Time: 00:29 Total Score = 0 10. Dysarthria (speech clarity - read or repeat words) - 0(Normal) 11. Extinction and Inattention (visual/tactile/auditory/spatial/personal) - 0(No abnormality) 1a. Level of Consciousness (LOC) - 0(Alert) 1b. Level of Consciousness (LOC) (Month \T\ Age) - 0(Both) 1c. LOC Commands (Open \T\ Closes Eyes/Pattern Wheel Maker) - 0(Both) 2. Best Gaze (Lateral Gaze Paresis) - 0(Normal) 3. Visual Field Loss - 0(No visual loss) 4. Facial Palsy - 0(Normal) 5a. Left Arm: Motor (10-second hold) - 0(No drift) 5b. Right Arm: Motor (10-second hold) - 0(No drift) 6a. Left Leg: Motor (5-second hold - always test supine) - 0(No drift) 6b. Right Leg: Motor (5-second hold - always test supine) - 0(No drift) 7. Limb Ataxia (finger/nose \T\ heel/howell - test with eyes open) - 0(Absent) 8. Sensory Loss (pinprick arms/legs/face) - 0(Normal) 9. Best Language: Aphasia (description/naming/reading) - 0(No aphasia) Initials: sp4 Signatures: Dispatcher [employer] Delvin Sneed MD MD sp4 Re Dickson RN RN kj2 Corrections: (The following items were deleted from the chart) 02/03 20:22 20:22 Troponin High Sensitivity+C.LAB.BRZ ordered. EDMS EDMS 20:22 20:22 PROBNP+C.LAB.BRZ ordered. EDMS EDMS 02/04 03[facility]
--- NOTE | 2024-02-05 00:33 | ER ---
Nurse's Notes [facility] Name: Kyaw Ellington Jr Age: 88 yrs Sex: Male : 1935 Arrival Date: 02/04/2024 Time: 19:35 Bed 18 Private MD: Diagnosis: Acute hyponatremia, generalized weakness, sepsis without septic shock Presentation: 02/03 20:05 Chief complaint: EMS states: called out for lift assist and patient is very weak. kj2 Coronavirus screen: At this time, the client does not indicate any symptoms associated with coronavirus-19. Ebola Screen: No symptoms or risks identified at this time. Initial Sepsis Screen: Does the patient meet any 2 criteria? No. Patient's initial sepsis screen is negative. Does the patient have a suspected source of infection? No. Patient's initial sepsis screen is negative. Risk Assessment: Do you want to hurt yourself or someone else? Patient reports no desire to harm self or others. Onset of symptoms was February 04, 2024. 20:05 Method Of Arrival: [facility]: [facility] 20:05 Acuity: JAME 3 kj2 Triage Assessment: 20:10 General: Appears in no apparent distress. Behavior is calm, cooperative. Pain: Denies kj2 pain. EENT: No signs and/or symptoms were reported regarding the EENT system. Neuro: Level of Consciousness is awake, alert, obeys commands, Oriented to person, place, time, situation. Cardiovascular: Patient's skin is warm and dry. Respiratory: Airway is patent Respiratory effort is unlabored. GI: No signs and/or symptoms were reported involving the gastrointestinal system. : No signs and/or symptoms were reported regarding the genitourinary system. Derm: Reports was seen by industrial green systems designer, skin spots removed today. Historical: - Allergies: 20:09 No Known Allergies; kj2 - Home Meds: 20:09 aspirin 81 mg Oral chew 1 tab once daily [Active]; kj2 - PMHx: 20:09 COLON CA; COPD; Diabetes - NIDDM; Hyperlipidemia; Hypertension; Hypothyroidism; kj2 PROSTATE CA; - Immunization history:: Adult Immunizations unknown. - Infectious Disease History:: Denies. - Family history:: not pertinent. - Social history:: Smoking status: Patient denies any tobacco usage or history of. Screenin:12 [facility] ED Fall Risk Assessment (Adult) History of falling in the last 3 months, kj2 including since admission Yes- single mechanical fall (1 pt) Confusion or Disorientation No (0 pts) Intoxicated or Sedated No (0 pts) Impaired Gait Yes (1 pt) Mobility Assist Device Used No (0 pt) Altered Elimination No (0 pt) Score/Fall Risk Level 0 - 2 = Low Risk Maintained a safe environment, Hourly rounding (assess needs \T\ fall precautionary measures) done. Abuse screen: Denies threats or abuse. Denies injuries from another. Nutritional screening: No deficits noted. Tuberculosis screening: No symptoms or risk factors identified. Assessment: 20:12 General: see triage assessment. kj2 21:15 Reassessment: Patient appears in no apparent distress at this time. Patient and/or kj2 family updated on plan of care and expected duration. Pain level reassessed. Patient is alert, oriented x 3, equal unlabored respirations, skin warm/dry/pink. 21:59 Reassessment: Patient appears in no apparent distress at this time. Patient and/or kj2 family updated on plan of care and expected duration. Pain level reassessed. Patient is alert, oriented x 3, equal unlabored respirations, skin warm/dry/pink. 22:30 Reassessment: Patient appears in no apparent distress at this time. Patient and/or kj2 family updated on plan of care and expected duration. Pain level reassessed. Patient is alert, oriented x 3, equal unlabored respirations, skin warm/dry/pink. 23:29 Reassessment: Patient appears in no apparent distress at this time. Patient and/or kj2 family updated on plan of care and expected duration. Pain level reassessed. Patient is alert, oriented x 3, equal unlabored respirations, skin warm/dry/pink. 02/04 00:49 Reassessment: Patient appears in no apparent distress at this time. Patient and/or kj2 family updated on plan of care and expected duration. Pain level reassessed. Patient is alert, oriented x 3, equal unlabored respirations, skin warm/dry/pink. 01:53 Reassessment: Patient appears in no apparent distress at this time. Patient and/or kj2 family updated on plan of care and expected duration. Pain level reassessed. Patient is alert, oriented x 3, equal unlabored respirations, skin warm/dry/pink. 03:07 Reassessment: Patient appears in no apparent distress at this time. Patient and/or kj2 family updated on plan of care and expected duration. Pain level reassessed. Patient is alert, oriented x 3, equal unlabored respirations, skin warm/dry/pink. Vital Signs: 02/03 20:05 BP 99 / 59; Pulse 78; Temp 98.1; Pulse Ox 96% ; Weight 77.11 kg; Height 5 ft. 11 in. ; kj2 21:30 BP 124 / 66; Pulse 78; Resp 20; Pulse Ox 98% on R/A; kj2 22:30 BP 129 / 65; Pulse 81; Resp 18; Pulse Ox 99% on R/A; kj2 23:29 BP 133 / 68; Pulse 81; Resp 18; Pulse Ox 97% on R/A; kj2 02/04 00:50 BP 141 / 73; Pulse 70; Resp 18; Pulse Ox 98% ; kj2 01:54 BP 125 / 67; Pulse 87; Resp 18; Pulse Ox 100% on R/A; kj2 03:07 BP 144 / 75; Pulse 88; Resp 18; Temp 98; Pulse Ox 100% on R/A; kj2 02/03 20:05 Body Mass Index 23.71 (77.11 kg, 180.34 cm) kj2 [place] Coma Score: 00:29 Eye Response: spontaneous(4). Motor Response: obeys commands(6). Verbal Response: sp4 oriented(5). Total: 15. NIH Stroke Scale Scores: 00:29 NIHSS Score: 0 sp4 ED Course: 02/03 19:55 Patient arrived in ED. lg3 20:05 Re Dickson, RN is Primary Nurse. kj2 20:08 Triage completed. kj2 20:09 Delvin Ponce MD is Attending Physician. sp4 20:13 Patient has correct armband on for positive identification. Bed in low position. Call kj2 light in reach. Side rails up X 1. Adult w/ patient. Provided Education on: call light. 20:13 No provider procedures requiring assistance completed. kj2 20:15 Arm band placed on Patient placed in an exam room, on a stretcher. kj2 21:33 CT Head Brain wo Cont In Process Unspecified. EDMS 21:33 CT Chest Abdomen Pelvis W/O Contrast In Process Unspecified. EDMS 21:33 Inserted saline lock: 20 gauge in right upper arm, using aseptic technique. Blood kj2 collected. Flushed with 10 mL NS. 21:59 Influenza Screen (a \T\ B) Sent. kj2 21:59 SARS RAPID Sent. kj2 02/04 00:25 initiated transfer with Tamar at [facility]. [facility] 00:50 Assisted with bedpan. Linen changed. kj2 01:06 [facility] 01:41 Urine Osmolality Sent. kj2 01:41 Osmolality, Serum Sent. kj2 01:41 Urine Sodium Random Sent. kj2 01:41 Urine Creatinine Sent. kj2 02:06 [facility] Waited on hold for 20 minutes. Initial contact [facility] with Brunilda Dietrich\ [id number] Pt was auto accepted by Dr. Almeida, J [phone] to nurse to nurse report. Admin approval given by Brunilda Arriola [id number]. ER to . [facility] to transfer pt once nurse to nurse. 03:12 Patient transferred, IV remains in place. kj2 Administered Medications: 02/03 21:58 Drug: Solu-CORTEF IVP 100 mg IVP once Route: IVP; Site: right antecubital; kj2 23:27 Follow up: Response: No adverse reaction kj2 02/04 00:02 Drug: Cefepime IVPB 1 grams IVPB at 200 ml/hr once over 30 mins; (mix in NS 100 mL) kj2 Route: IVPB; Rate: 200 ml/hr; Infused Over: 30 mins; Site: right antecubital; 00:32 Follow up: IV Status: Completed infusion; IV Intake: 100ml kj2 00:49 Follow up: Response: No adverse reaction kj2 00:48 Drug: vancoMYCIN IVPB 1 grams IVPB once over 2 hrs Route: IVPB; Infused Over: 2 hrs; kj2 Site: right antecubital; 02:45 Follow up: IV Status: Completed infusion; IV Intake: 250ml kj2 01:43 Drug: NS 0.9% IV 1000 ml IV at 100 ml/hr Per protocol; to be given as a bolus over 60 kj2 minutes Route: IV; Rate: 100 ml/hr; Site: right antecubital; 03:10 Follow up: IV Status: Infusion continued upon transfer kj2 Medication: 02/03 20:13 VIS not applicable for this client. kj2 Intake: 02/04 00:32 IV: 100ml; Total: 100ml. kj2 02:45 IV: 250ml; Total: 350ml. kj2 Outcome: 00:33 ER care complete, transfer ordered by . sp4 03:09 Transferred by ground EMS Note: clear dumont [facility] ER kj2 03:09 Condition: stable 03:23 Patient left the ED. kj2 NIH Stroke Scale - NIH Stroke Score Date: 02/05/2024 Time: 00:29 Total Score = 0 10. Dysarthria (speech clarity - read or repeat words) - 0(Normal) 11. Extinction and Inattention (visual/tactile/auditory/spatial/personal) - 0(No abnormality) 1a. Level of Consciousness (LOC) - 0(Alert) 1b. Level of Consciousness (LOC) (Month \T\ Age) - 0(Both) 1c. LOC Commands (Open \T\ Closes Eyes/Liquefaction And Regasification Helper) - 0(Both) 2. Best Gaze (Lateral Gaze Paresis) - 0(Normal) 3. Visual Field Loss - 0(No visual loss) 4. Facial Palsy - 0(Normal) 5a. Left Arm: Motor (10-second hold) - 0(No drift) 5b. Right Arm: Motor (10-second hold) - 0(No drift) 6a. Left Leg: Motor (5-second hold - always test supine) - 0(No drift) 6b. Right Leg: Motor (5-second hold - always test supine) - 0(No drift) 7. Limb Ataxia (finger/nose \T\ heel/howell - test with eyes open) - 0(Absent) 8. Sensory Loss (pinprick arms/legs/face) - 0(Normal) 9. Best Language: Aphasia (description/naming/reading) - 0(No aphasia) Initials: sp4 Signatures: Dispatcher [employer] Rhoda Perea RN RN lg3 Delvin Ponce MD MD sp4 Milagros Ramon [facility] Re Dickson RN RN kj2
[2024-02-05] MEDS ORDERED: NA CHLORIDE 0.9% 1,000 ML ONE (01:38)
[2024-02-05 03:51] VITALS: O2SAT 100
[2024-02-05 03:52] VITALS: BP 144/75; TEMP 98
--- NOTE | 2024-02-07 15:53 | EKG ---
Test Date: 2024-02-04 Test Time: 23:49:24 Software Configuration Analyst: AMBER MEASUREMENT RESULTS: Intervals: Rate: 82 ME: 198 QRSD: 88 QT: 402 QTc: 469 [place]: P: 39 ME: 198 QRS: -27 T: 21 INTERPRETIVE STATEMENTS: Normal sinus rhythm Normal ECG Compared to ECG 10/29/2023 08:06:44 ST (T wave) deviation no longer present Electronically Signed On 02-07-24 15:49:21 ELECTRICAL LOGGING OPERATOR by Kenneth Rosales
== END 2024-02-05 03:23 | disposition short-term general hospital (02) ==
LOC: ER 19:35
DX: E87.1 Hypo-osmolality and hyponatremia (principal); A41.9 Sepsis, unspecified organism; R55 Syncope and collapse; J44.9 Chronic obstructive pulmonary disease, unspecified; I10 Essential (primary) hypertension; E11.9 Type 2 diabetes mellitus without complications; Z11.52 Encounter for screening for COVID-19; Z85.038 Personal history of other malignant neoplasm of large intestine; Z85.46 Personal history of malignant neoplasm of prostate
CPT/HCPCS: 96365; 96367; 93005; 87040 ×2; 85025; 81001; 36415; 85610; 84300; 83605; 85730; 84443; 82570; 84484; 84439; 80053; 83880; 83930; 83935; 87804 ×2; 70450; 71250; 74176; 96375; 99285; 87811; Q9967; J1720; J7050; J7030; J0692